=== PATIENT | male | born 1975 | race Caucasian/White ===

== ENCOUNTER 2021-12-05 13:07 | Emergency (ER) | payer SELFPAY ==
--- NOTE | 2021-12-05 | ECG_ITS ---
Test Reason : chest pain Blood Pressure : / mmHG Vent. Rate : 101 BPM Atrial Rate : 101 BPM P-R Int : 136 ms QRS Dur : 088 ms QT Int : 340 ms P-R-T Axes : 042 043 -16 degrees QTc Int : 440 ms Sinus tachycardia Possible Left atrial enlargement T wave abnormality, consider inferior ischemia Abnormal ECG When compared with ECG of 05-MAY-2012 08:36, Vent. rate has increased BY 42 BPM QT has lengthened Referred By: Generic ED Physician Electronically Signed By:REBECCA ROLAND
--- NOTE | ~2021-12-05 | XR_ITS ---
EXAMINATION: XR CHEST CLINICAL INFORMATION: Chest pain COMPARISON: Chest radiograph 05/05/2012 TECHNIQUE: Frontal view of the chest was obtained. FINDINGS: Aside from mild hypoinflation, no significant abnormality is noted involving the heart, lungs, mediastinum, bony thorax or soft tissues. XR/XR chest 1V IMPRESSION: No acute intrathoracic disease.
--- NOTE | ~2021-12-05 | CT_ITS ---
EXAMINATION: CT ABDOMEN AND PELVIS WITHOUT CONTRAST CLINICAL INFORMATION: Abdominal pain COMPARISON: 12.29.2013 TECHNIQUE: Multidetector volumetric imaging was performed from the superior aspect of the liver through the pubic symphysis. Sagittal and coronal reformatted images were obtained on the technologist's workstation. This CT examination was performed using dose optimization techniques as appropriate, variously including the following: *Automated exposure control *Adjustment of mA and/or kV according to patient size (this includes techniques or standardized protocols for targeted exams where dose is matched to indication/reason for exam; i.e. extremities or head) *Use of iterative reconstruction technique DLP: 913 mGy-cm FINDINGS: LUNG BASES: The visualized lung bases are unremarkable. LIVER, GALLBLADDER, AND BILIARY TREE: Liver normal in size, contour and morphology. Moderate diffuse hepatic steatosis. No intra or extrahepatic biliary dilatation. Gallbladder unremarkable. PANCREAS: Unremarkable. SPLEEN: Unremarkable. ADRENAL GLANDS: Unremarkable. KIDNEYS AND URETERS: The kidneys are normal in size, shape, and attenuation. No hydronephrosis, hydroureter, or calculi seen. No perinephric stranding. BLADDER: Unremarkable. GASTROINTESTINAL TRACT: There are multiple mildly dilated loops of small bowel, without point of transition. Ascending colon is fluid-filled. Transverse and left colon are relatively collapsed. Normal appendix. Moderate distention of the stomach. ABDOMINAL WALL: No significant hernia is appreciated. LYMPH NODES: Normal. VASCULAR: Unremarkable. PELVIC VISCERA: Unremarkable. OSSEOUS STRUCTURES: No acute or suspicious osseous abnormalities. Quyc-je-czatpfyh bilateral hip arthrosis with marginal osteophytes and degenerative subchondral cysts within the superior acetabula bilaterally. There is a fluid density structure within the right gluteus minimus superior to the right hip joint measuring approximately 5.0 x 2.8 x 3.0 cm. There is irregularity of the cortex of the iliac bone underlying this lesion, which is nonspecific. See morales images. CT/CT abdomen pelvis wo con IMPRESSION: * Moderate hepatic steatosis. * Findings compatible with generalized ileus. No evidence of obstruction. * Nonspecific 5.0 cm heterogeneous, possibly fluid containing structure within the gluteus minimus with underlying cortical irregularity of the right iliac bone. Recommend MRI of the pelvis, without and with contrast for further evaluation.
[2021-12-05 13:21] VITALS: BP 143/103; PULSE 102; RESP 24; TEMP 35.9; O2SAT 99; BMI 36.9
[2021-12-05 13:47] LABS: MANUAL DIFF FLAG NO
[2021-12-05 13:53] LABS: Basophils Absolute Auto 0.1 X10*3/uL (0.0-0.2); Basophils Percent Auto 0.5 % (0-2); Eosinophils Absolute Auto 0.1 X10*3/uL (0.0-0.4); Eosinophils Percent Auto 0.3 % (0-4); Hemoglobin 18.3 g/dl (14.0-18.0); Imm Gran Abs Auto 0.07 X10*3/uL (0.00-0.03); Imm Gran Pct Auto 0.4 % (0.0-0.4); Lymphocytes Absolute Auto 2.3 X10*3/uL (1.2-4.9); Lymphocytes Percent Auto 14.4 % (20-40); Mean Corpuscular Hemoglobin 28.2 pg (27.0-33.0); Mean Corpuscular Volume 85.5 fL (80.0-98.0); Mean Platelet Volume 9.5 fL (9.4-12.4); Monocytes Absolute Auto 0.7 X10*3/uL (0.1-1.2); Monocytes Percent Auto 4.7 % (2-11); Neutrophils Absolute Auto 12.5 x10*3/uL (2.0-8.3); Neutrophils Percent Auto 79.7 % (45-73); Platelet Count 386 X10*3/uL (160-400); Red Blood Count 6.49 X10*6/uL (4.60-5.80); Red Cell Distribution Width 13.2 % (11.0-16.0); White Blood Count 15.7 X10*3/uL (4.8-10.8)
[2021-12-05 13:58] LABS: Hematocrit 55.5 % (42.0-52.0)
[2021-12-05 14:13] LABS: Troponin-I High Sensitivity < 3.5 ng/L (<3.5-35.0)
[2021-12-05 14:14] LABS: Anion Gap 15 (12-20); Blood Urea Nitrogen 14 mg/dL (9-16); Calcium 10.9 mg/dL (8.4-10.2); Carbon Dioxide 26 mmol/L (22-29); Chloride 103 mmol/L (96-108); Creatinine Clr Calc Pharmacy 59.6; Estimated Glomerular Filt Rate 38; Glucose Random 156 mg/dL (60-115); Potassium 4.8 mmol/L (3.3-5.1); Sodium 139 mmol/L (135-145)
[2021-12-05 14:45] VITALS: BP 119/85; PULSE 99; RESP 17; TEMP 36.6; O2SAT 95
--- NOTE | 2021-12-05 14:53 | ED.CHESTPAIN ---
HPI - Chest Pain General Chief Complaint: Chest Pain Stated Complaint: chest pain abd pain Time Seen by Provider: 12/05/21 14:50 Mode of arrival: ambulatory History of Present Illness HPI narrative: this is a 46 years old male presented to the ED complaining of abdominal pain since 02:00 with nausea vomiting complaint: other (abdominal pain) Onset (ago): hour(s) (12 h) Timing of current episode: constant Onset: during rest Pain radiation: none Severity: moderate Quality: dull Relieving factors: nothing Exacerbating factors: nothing Risk Factors Coronary artery disease risk factors: none Related Data Allergies Allergy/AdvReac Type Severity Reaction Status Date / Time No Known Allergies Allergy Unverified 04/07/20 14:54 Review of Systems Constitutional: Constitutional: Reports no additional constitutional complaints Eyes: Eyes: Reports no additional eye complaints Cardiovascular: Cardiovascular: Reports no additional cardiovascular complaints Gastrointestinal: Gastrointestinal: Reports abdominal pain Integumentary/Breasts: Skin/Breast: Reports system reviewed and no additional complaints, except as docu Neurologic: Reports system reviewed and no additional complaints, except as documented FORMERLY [facility], [facility]1983 Social History Social History Advance Directives: No Advance Directives Information Provided: No Physical Exam Vital Signs: Vital Signs: Last Vital Signs Temp 98 F 12/05/21 14:45 Pulse 99 12/05/21 14:45 Resp 18 12/05/21 15:22 BP 119/85 12/05/21 14:45 Pulse Ox 95 12/05/21 14:45 BMI result Body Mass Index 36.9 Const: General: cooperative and comfortable Nutritional Appearance: average body habitus HEENT: Head: Yes normal to inspection and Yes No palpable skull fracture present General nose exam: Normal external nose present Face and sinus: Yes normal facial exam Mouth: Normal oral and palatal mucosa present Throat: Yes posterior oropharynx normal Neck: Neck: Yes normal visual inspection and Yes full ROM Lymphatic: no lymphadenopathy noted Chest: Chest palpation & inspection: normal inspection of the chest Resp: Effort & Inspection: normal respiratory effort Auscultation: clear to auscultation bilaterally Cardio: Jugular venous distension: no JVD Rate: regular rate Rhythm: regular rhythm GI: Inspection: Yes normal to inspection Palpation (GI): Tenderness to palpation present (GI) Auscultation: normal bowel sounds Skin: General skin exam: no rashes or lesions noted, elasticity normal and turgor normal Course Reevaluation(s) Reevaluation #1: ct pending signed off to Dr Berna MARTINO - Chest Pain Lab Data Result diagrams: 12/05/21 13:43 12/05/21 13:43 Labs: Lab Results 12/05/21 12/05/21 12/05/21 Range/Units 13:43 13:43 13:43 WBC 15.7 H (4.8-10.8) X10*3/uL RBC 6.49 H (4.60-5.80) X10*6/uL Hgb 18.3 H (14.0-18.0) g/dl Hct 55.5 H (42.0-52.0) % MCV 85.5 (80.0-98.0) fL MCH 28.2 (27.0-33.0) pg MCHC 33.0 (31.0-36.0) g/dl RDW 13.2 (11.0-16.0) % Plt Count 386 (160-400) X10*3/uL MPV 9.5 (9.4-12.4) fL Immature Gran % (Auto) 0.4 (0.0-0.4) % Neut % (Auto) 79.7 H (45-73) % Lymph % (Auto) 14.4 L (20-40) % [place] % (Auto) 4.7 (2-11) % Eos % (Auto) 0.3 (0-4) % Baso % (Auto) 0.5 (0-2) % Lymph # (Auto) 2.3 (1.2-4.9) X10*3/uL [place] # (Auto) 0.7 (0.1-1.2) X10*3/uL Eos # (Auto) 0.1 (0.0-0.4) X10*3/uL Baso # (Auto) 0.1 (0.0-0.2) X10*3/uL Abs Immat Gran (auto) 0.07 H (0.00-0.03) X10*3/uL Absolute Neuts (auto) 12.5 H (2.0-8.3) x10*3/uL Absolute Nucleated RBC 0.000 (0.0-0.012) X10*3/uL Nucleated RBC % (auto) 0.0 (0.0-0.2) /100WBC Sodium 139 (135-145) mmol/L Potassium 4.8 (3.3-5.1) mmol/L Chloride 103 (96-108) mmol/L Carbon Dioxide 26 (22-29) mmol/L Anion Gap 15 (12-20) BUN 14 (9-16) mg/dL Creatinine 1.92 H (0.5-1.4) mg/dL Estim Creat Clear Calc 59.6 Estimated GFR 38 Random Glucose 156 H (60-115) mg/dL Calcium 10.9 H (8.4-10.2) mg/dL Troponin I High Sens < 3.5 (<3.5-35.0) ng/L ECG Data ECG #1: Pacemaker model: Normal sinus [address]-Tchanges intraventricular conduction delay Discharge Plan Discharge Clinical Impression: Abdominal pain Patient Disposition: Still a Patient
[2021-12-05 15:11] VITALS: PULSE 89
[2021-12-05] MEDS: 0.9 % Sodium Chloride 1,000 ML 999 ML IVCONT ×2 (15:14→15:23)
[2021-12-05] MEDS: ondansetron HCL 4 MG/2 ML VIAL IVPUSH (15:21)
[2021-12-05 15:22] VITALS: RESP 18
[2021-12-05] MEDS: Morphine Sulfate 4 MG/ML CARTRIDGE IVPUSH (15:22)
--- NOTE | 2021-12-05 15:25 | PC.NURSE ---
pt a&ox3, vss, chest pain resolved per pt, 03/31 LLQ abd pain. medicated per provider order. 2L IVF running.
[2021-12-05 17:29] VITALS: BP 147/101; PULSE 81; RESP 17; TEMP 37.1; O2SAT 96
[2021-12-05 17:58] LABS: Anion Gap 13 (12-20); Blood Urea Nitrogen 13 mg/dL (9-16); Calcium 9.3 mg/dL (8.4-10.2); Carbon Dioxide 25 mmol/L (22-29); Chloride 106 mmol/L (96-108); Creatinine Clr Calc Pharmacy 73.4; Estimated Glomerular Filt Rate 48; Glucose Random 157 mg/dL (60-115); Potassium 4.8 mmol/L (3.3-5.1); Sodium 139 mmol/L (135-145)
[2021-12-05] MEDS: 0.9 % Sodium Chloride 1,000 ML 999 ML IV (19:04)
== END 2021-12-05 19:23 | disposition home or self-care (01) ==
PROVIDERS: Emergency Medicine; Emergency Provider Emergency Medicine; PCP Internal Medicine
DX: R07.89 Other chest pain (principal); R10.9 Unspecified abdominal pain; Z79.899 Other long term (current) drug therapy
CPT/HCPCS: 36415; 71045; 74176; 80048; 84484; 85025; 93005; 96361; 96374; 96375; 99284; J2270; J2405

== ENCOUNTER 2022-09-14 15:37 | Emergency (ER) | payer OTHER, SELFPAY ==
--- NOTE | 2022-09-14 16:17 | ED_ITS ---
HPI - General Adult General Chief complaint: Upper Respiratory Symptoms <MARBELLA Nair - Last Filed: 09/14/22 16:18> Stated complaint: diarrhea, vomiting, pain in L ear/ throat, dehydr <MARBELLA Nair - Last Filed: 09/14/22 16:18> Time Seen by Provider: 09/14/22 21:01 <MARBELLA Nair - Last Filed: 09/14/22 16:18> Source: patient <Felictia Coronel MD - Last Filed: 09/14/22 21:47> Mode of arrival: ambulatory <Felicita Coronel MD - Last Filed: 09/14/22 21:47> Limitations: no limitations <Felicita Coronel MD - Last Filed: 09/14/22 21:47> History of Present Illness HPI narrative: Patient comes to the emergency room complaining of a couple of days of nausea, vomiting, diarrhea and left-sided ear pain. Patient denies fever chills. Patient states that he does not have any abdominal pain, no URI or UTI symptoms. <Felicita Coronel MD - Last Filed: 09/14/22 21:47> Related Data Home medications: Previous Rx's Medication Instructions Recorded ondansetron 4 mg disintegrating 4 mg PO Q6H PRN nausea and 12/05/21 tablet vomiting #14 tabs amoxicillin 500 mg-potassium 1 tab PO BID #19 tabs 09/14/22 clavulanate 125 mg tablet (Augmentin) loperamide 2 mg capsule 2 mg PO Q4H PRN loose stool #14 09/14/22 caps ondansetron 4 mg disintegrating 4 mg PO Q6H PRN nausea and 09/14/22 tablet vomiting #14 tabs <MARBELLA Nair - Last Filed: 09/14/22 16:18> Allergies/adverse reactions: Allergies Allergy/AdvReac Type Severity Reaction Status Date / Time No Known Allergies Allergy Verified 09/14/22 16:18 <MARBELLA Nair - Last Filed: 09/14/22 16:18> Review of Systems Review of Systems: Constitutional : No Weight loss, No Fever, No Chills, No Night Sweats, No Fatigue, No Malaise ENT/Mouth : No Hearing loss, complaining of left-sided ear pain,, No Nasal Congestion, No Sinus Pain, No Hoarseness, No sore throat, No Rhinorrhea, No Swallowing Difficulty Eyes: No Eye Pain, No Swelling, No Redness, No Foreign Body, No Discharge, No Vision Changes Cardiovascular : No Chest Pain, No SOB, No Dyspnea on Exertion, No Orthopnea, No Edema, No Palpitations Respiratory : No Cough, No Sputum, No Wheezing, No Smoke Exposure, No Dyspnea Gastrointestinal : Complaining of nausea vomiting and diarrhea, No Constipation, No abdominal Pain, No Hematochezia, No Melena Genitourinary : no irregular bleeding, No Dysuria, No Urinary Frequency, No Hematuria, No Urinary Incontinence, No Urgency, No Flank Pain, No Urinary Flow Changes, No Hesitancy Musculoskeletal : No joint pain, No Myalgias, No Joint Swelling Skin : No Skin Lesions, No rash Neuro : No Weakness, No Numbness, No Paresthesias, No Loss of Consciousness, No Dizziness, No Headache Psych : No Anxiety/Panic, No Depression, No SI/HI/AH/VH, No Social Issues, Heme/Lymph: No Bruising, No Bleeding,No Lymphadenopathy Endocrine : No Polyuria, No Polydipsia, No Temperature Intolerance <Felicita Coronel MD - Last Filed: 09/14/22 21:47> [facility] Social History Social History: Social History Alcohol intake: current Alcohol intake frequency: holidays/special occasions only Smoked in Last 30 Days: Yes Use of substances other than those prescribed or required for medical reasons: No Advance Directives: No Advance Directives Information Provided: No <MARBELLA Nair - Last Filed: 09/14/22 16:18> Physical Exam ED Vital Signs: Vital Signs - 24 hr 09/14/22 16:18 09/14/22 21:33 Temperature 100.1 F 98.8 F Pulse Rate 114 H 84 Respiratory Rate 16 16 Blood Pressure 117/74 128/73 Pulse Oximetry 93 96 Oxygen Delivery Method Room Air Room Air BMI result Body Mass Index 36.5 <MARBELLA Nair - Last Filed: 09/14/22 16:18> Vital Signs - 24 hr 09/14/22 16:18 09/14/22 21:33 Temperature 100.1 F 98.8 F Pulse Rate 114 H 84 Respiratory Rate 16 16 Blood Pressure 117/74 128/73 Pulse Oximetry 93 96 Oxygen Delivery Method Room Air Room Air BMI result Body Mass Index 36.5 <Felicita Coronel MD - Last Filed: 09/14/22 21:47> Const Other: Appearance: Alert. Oriented X3. No acute distress. Eyes: Pupils equal, round and reactive to light. ENT: Pharynx normal. Left ear positive for otitis media, tympanic membrane erythematous, mildly bulging, no ruptured. Right ear within normal limits Neck: Normal inspection. Neck supple. No lymph nodes noted. No crepitus CVS: Normal heart rate and rhythm. Pulses normal. Normal S1 and S2 Respiratory: No respiratory distress. Breath sounds normal. No Wheezing. No rales Abdomen: Soft and nontender. No rigidity. No distention. Skin: Skin warm and dry. Normal skin color. Normal skin turgor. Extremities: No lower extremity edema. No Lacerations. No Rash Neuro: Oriented X 3. No motor deficit. No sensory deficit. Moving all extremities. No slurred speech. CN 2 through 12 grossly intact Psych: calm, cooperative, normal affect <Felicita Coronel MD - Last Filed: 09/14/22 21:47> Course Course Course Narrative: RME performed by Kalani Cortes PA-C. Patient is a 47 year old male presenting to the emergency department with nausea, vomiting, and feeling generally unwell. Patient is concerned that he is dehydrated. Labs ordered. Patient placed back in the waiting room pending room availability and results. <MARBELLA Nair - Last Filed: 09/14/22 16:18> Medical Decision Making Medical Decision Making MDM Narrative: -I discussed the labs with the patient. Imaging at this time is not indicated. -I recommended IV fluids, IV Zofran, loperamide and Augmentin. However, patient requested to have this medication being given p.o. and also states that he will take plenty of fluids at home. Patient states that he has a situation at home and needs to be discharged as soon as possible -patient given p.o. medications as above. <Felicita Coronel MD - Last Filed: 09/14/22 21:47> Differential Diagnosis Differential Diagnoses: The differential diagnosis associated with the presentation includes (Melina l syndrome, gastritis, COVID) <Felicita Coronel MD - Last Filed: 09/14/22 21:47> Lab Data [facility] Lab Attestation statement: I reviewed the patient's lab results. <Felicita Coronel MD - Last Filed: 21:47> Result Diagrams: 09/14/22 17:02 09/14/22 17:02 <MARBELLA Nair - Last Filed: 09/14/22 16:18> Labs: Lab Results 09/14/22 09/14/22 09/14/22 Range/Units 17:02 17:02 17:02 WBC 8.8 (4.8-10.8) X10*3/uL RBC 5.54 (4.60-5.80) X10*6/uL Hgb 15.9 (14.0-18.0) g/dl Hct 48.1 (42.0-52.0) % MCV 86.8 (80.0-98.0) fL MCH 28.7 (27.0-33.0) pg MCHC 33.1 (31.0-36.0) g/dl RDW 12.9 (11.0-16.0) % Plt Count 257 D (160-400) X10*3/uL MPV 9.9 (9.4-12.4) fL Immature Gran % (Auto) 0.3 (0.0-0.4) % Neut % (Auto) 82.3 H (45-73) % Lymph % (Auto) 10.8 L (20-40) % [place] % (Auto) 6.2 (2-11) % Eos % (Auto) 0.1 (0-4) % Baso % (Auto) 0.3 (0-2) % Lymph # (Auto) 1.0 L (1.2-4.9) X10*3/uL [place] # (Auto) 0.5 (0.1-1.2) X10*3/uL Eos # (Auto) 0.0 (0.0-0.4) X10*3/uL Baso # (Auto) 0.0 (0.0-0.2) X10*3/uL Abs Immat Gran (auto) 0.03 (0.00-0.03) X10*3/uL Absolute Neuts (auto) 7.2 (2.0-8.3) x10*3/uL Absolute Nucleated RBC 0.000 (0.0-0.012) X10*3/uL Nucleated RBC % (auto) 0.0 (0.0-0.2) /100WBC Sodium 136 (135-145) mmol/L Potassium 4.0 (3.3-5.1) mmol/L Chloride 107 (96-108) mmol/L Carbon Dioxide 20 L (22-29) mmol/L Anion Gap 13 (12-20) BUN 15 (9-16) mg/dL Creatinine 1.25 (0.5-1.4) mg/dL Estim Creat Clear Calc 87.4 Estimated GFR > 60 Random Glucose 125 H (60-115) mg/dL Calcium 8.6 D (8.4-10.2) mg/dL Magnesium 1.6 (1.6-2.6) mg/dL Total Bilirubin 0.8 (0.0-1.0) mg/dL AST 19 (5-37) U/L ALT 39 (0-40) U/L Alkaline Phosphatase 84 (39-117) U/L Troponin I High Sens (<3.5-35.0) ng/L B-Natriuretic Peptide (<100) pg/mL Total Protein 6.9 (6.5-8.0) g/dL Albumin 4.1 (3.5-5.0) g/dL Lipase 10 (8-78) U/L COVID-19 ([facility]) Negative (Negative) COVID-19 Clin Com See Note 09/14/22 09/14/22 Range/Units 17:02 17:02 WBC (4.8-10.8) X10*3/uL RBC (4.60-5.80) X10*6/uL Hgb (14.0-18.0) g/dl Hct (42.0-52.0) % MCV (80.0-98.0) fL MCH (27.0-33.0) pg MCHC (31.0-36.0) g/dl RDW (11.0-16.0) % Plt Count (160-400) X10*3/uL MPV (9.4-12.4) fL Immature Gran % (Auto) (0.0-0.4) % Neut % (Auto) (45-73) % Lymph % (Auto) (20-40) % [place] % (Auto) (2-11) % Eos % (Auto) (0-4) % Baso % (Auto) (0-2) % Lymph # (Auto) (1.2-4.9) X10*3/uL [place] # (Auto) (0.1-1.2) X10*3/uL Eos # (Auto) (0.0-0.4) X10*3/uL Baso # (Auto) (0.0-0.2) X10*3/uL Abs Immat Gran (auto) (0.00-0.03) X10*3/uL Absolute Neuts (auto) (2.0-8.3) x10*3/uL Absolute Nucleated RBC (0.0-0.012) X10*3/uL Nucleated RBC % (auto) (0.0-0.2) /100WBC Sodium (135-145) mmol/L Potassium (3.3-5.1) mmol/L Chloride (96-108) mmol/L Carbon Dioxide (22-29) mmol/L Anion Gap (12-20) BUN (9-16) mg/dL Creatinine (0.5-1.4) mg/dL Estim Creat Clear Calc Estimated GFR Random Glucose (60-115) mg/dL Calcium (8.4-10.2) mg/dL Magnesium (1.6-2.6) mg/dL Total Bilirubin (0.0-1.0) mg/dL AST (5-37) U/L ALT (0-40) U/L Alkaline Phosphatase (39-117) U/L Troponin I High Sens 4.3 (<3.5-35.0) ng/L B-Natriuretic Peptide 38 (<100) pg/mL Total Protein (6.5-8.0) g/dL Albumin (3.5-5.0) g/dL Lipase (8-78) U/L COVID-19 ([facility]) (Negative) COVID-19 Clin Com <MARBELLA Nair - Last Filed: 09/14/22 16:18> Lab Results 09/14/22 09/14/22 09/14/22 Range/Units 17:02 17:02 17:02 WBC 8.8 (4.8-10.8) X10*3/uL RBC 5.54 (4.60-5.80) X10*6/uL Hgb 15.9 (14.0-18.0) g/dl Hct 48.1 (42.0-52.0) % MCV 86.8 (80.0-98.0) fL MCH 28.7 (27.0-33.0) pg MCHC 33.1 (31.0-36.0) g/dl RDW 12.9 (11.0-16.0) % Plt Count 257 D (160-400) X10*3/uL MPV 9.9 (9.4-12.4) fL Immature Gran % (Auto) 0.3 (0.0-0.4) % Neut % (Auto) 82.3 H (45-73) % Lymph % (Auto) 10.8 L (20-40) % [place] % (Auto) 6.2 (2-11) % Eos % (Auto) 0.1 (0-4) % Baso % (Auto) 0.3 (0-2) % Lymph # (Auto) 1.0 L (1.2-4.9) X10*3/uL [place] # (Auto) 0.5 (0.1-1.2) X10*3/uL Eos # (Auto) 0.0 (0.0-0.4) X10*3/uL Baso # (Auto) 0.0 (0.0-0.2) X10*3/uL Abs Immat Gran (auto) 0.03 (0.00-0.03) X10*3/uL Absolute Neuts (auto) 7.2 (2.0-8.3) x10*3/uL Absolute Nucleated RBC 0.000 (0.0-0.012) X10*3/uL Nucleated RBC % (auto) 0.0 (0.0-0.2) /100WBC Sodium 136 (135-145) mmol/L Potassium 4.0 (3.3-5.1) mmol/L Chloride 107 (96-108) mmol/L Carbon Dioxide 20 L (22-29) mmol/L Anion Gap 13 (12-20) BUN 15 (9-16) mg/dL Creatinine 1.25 (0.5-1.4) mg/dL Estim Creat Clear Calc 87.4 Estimated GFR > 60 Random Glucose 125 H (60-115) mg/dL Calcium 8.6 D (8.4-10.2) mg/dL Magnesium 1.6 (1.6-2.6) mg/dL Total Bilirubin 0.8 (0.0-1.0) mg/dL AST 19 (5-37) U/L ALT 39 (0-40) U/L Alkaline Phosphatase 84 (39-117) U/L Troponin I High Sens (<3.5-35.0) ng/L B-Natriuretic Peptide (<100) pg/mL Total Protein 6.9 (6.5-8.0) g/dL Albumin 4.1 (3.5-5.0) g/dL Lipase 10 (8-78) U/L COVID-19 ([facility]) Negative (Negative) COVID-19 Clin Com See Note 09/14/22 09/14/22 Range/Units 17:02 17:02 WBC (4.8-10.8) X10*3/uL RBC (4.60-5.80) X10*6/uL Hgb (14.0-18.0) g/dl Hct (42.0-52.0) % MCV (80.0-98.0) fL MCH (27.0-33.0) pg MCHC (31.0-36.0) g/dl RDW (11.0-16.0) % Plt Count (160-400) X10*3/uL MPV (9.4-12.4) fL Immature Gran % (Auto) (0.0-0.4) % Neut % (Auto) (45-73) % Lymph % (Auto) (20-40) % [place] % (Auto) (2-11) % Eos % (Auto) (0-4) % Baso % (Auto) (0-2) % Lymph # (Auto) (1.2-4.9) X10*3/uL [place] # (Auto) (0.1-1.2) X10*3/uL Eos # (Auto) (0.0-0.4) X10*3/uL Baso # (Auto) (0.0-0.2) X10*3/uL Abs Immat Gran (auto) (0.00-0.03) X10*3/uL Absolute Neuts (auto) (2.0-8.3) x10*3/uL Absolute Nucleated RBC (0.0-0.012) X10*3/uL Nucleated RBC % (auto) (0.0-0.2) /100WBC Sodium (135-145) mmol/L Potassium (3.3-5.1) mmol/L Chloride (96-108) mmol/L Carbon Dioxide (22-29) mmol/L Anion Gap (12-20) BUN (9-16) mg/dL Creatinine (0.5-1.4) mg/dL Estim Creat Clear Calc Estimated GFR Random Glucose (60-115) mg/dL Calcium (8.4-10.2) mg/dL Magnesium (1.6-2.6) mg/dL Total Bilirubin (0.0-1.0) mg/dL AST (5-37) U/L ALT (0-40) U/L Alkaline Phosphatase (39-117) U/L Troponin I High Sens 4.3 (<3.5-35.0) ng/L B-Natriuretic Peptide 38 (<100) pg/mL Total Protein (6.5-8.0) g/dL Albumin (3.5-5.0) g/dL Lipase (8-78) U/L COVID-19 ([facility]) (Negative) COVID-19 Clin Com <Felicita Coronel MD - Last Filed: 09/14/22 21:47> Discharge Plan Discharge Clinical Impression: Acute viral syndrome, Otitis media, Nausea vomiting and diarrhea <MARBELLA Nair - Last Filed: 09/14/22 16:18> Patient Disposition: Home, Self-Care <MARBELLA Nair - Last Filed: 09/14/22 16:18> Instructions: Ear Infection (ED), Acute Nausea and Vomiting (ED) <MARBELLA Nair - Last Filed: 09/14/22 16:18> Additional Instructions: Please follow-up with your primary care physician tomorrow. If you have any worsening or new symptoms, please return to the emergency room or call 911 <AMRBELLA Nair - Last Filed: 09/14/22 16:18> Prescriptions: New ondansetron 4 mg tablet,disintegrating 4 mg PO Q6H PRN (Reason: nausea and vomiting) Qty: 14 0RF amoxicillin-pot clavulanate [Augmentin] 500-125 mg tablet 1 tab PO BID Qty: 19 0RF loperamide 2 mg capsule 2 mg PO Q4H PRN (Reason: loose stool) Qty: 14 0RF Rx Instructions: administer after each loose stool until symptoms controlled; do not exceed 8 mg per 24 hrs No Action ondansetron 4 mg tablet,disintegrating 4 mg PO Q6H PRN (Reason: nausea and vomiting) Qty: 14 0RF <MARBELLA Nair - Last Filed: 09/14/22 16:18>
[2022-09-14 16:18] VITALS: BP 117/74; PULSE 114; RESP 16; TEMP 37.8; O2SAT 93; BMI 36.5
--- NOTE | 2022-09-14 16:18 | ECG_ITS ---
Test Reason : SOB Blood Pressure : / mmHG Vent. Rate : 086 BPM Atrial Rate : 086 BPM P-R Int : 128 ms QRS Dur : 090 ms QT Int : 344 ms P-R-T Axes : 011 030 -05 degrees QTc Int : 411 ms Normal sinus rhythm Nonspecific T wave abnormality Borderline ECG When compared with ECG of 05-DEC-2021 13:17, Nonspecific ST and T wave abnormality less prominent Referred By: Kalani Cortes Electronically Signed By:REBECCA ROLAND
[2022-09-14 17:10] LABS: MANUAL DIFF FLAG NO
[2022-09-14 17:18] LABS: Basophils Percent Auto 0.3 % (0-2); Eosinophils Percent Auto 0.1 % (0-4); Hematocrit 48.1 % (42.0-52.0); Hemoglobin 15.9 g/dl (14.0-18.0); Imm Gran Abs Auto 0.03 X10*3/uL (0.00-0.03); Imm Gran Pct Auto 0.3 % (0.0-0.4); Lymphocytes Percent Auto 10.8 % (20-40); Mean Corpuscular HGB Conc 33.1 g/dl (31.0-36.0); Mean Corpuscular Hemoglobin 28.7 pg (27.0-33.0); Mean Corpuscular Volume 86.8 fL (80.0-98.0); Mean Platelet Volume 9.9 fL (9.4-12.4); Monocytes Absolute Auto 0.5 X10*3/uL (0.1-1.2); Monocytes Percent Auto 6.2 % (2-11); Neutrophils Absolute Auto 7.2 x10*3/uL (2.0-8.3); Neutrophils Percent Auto 82.3 % (45-73); Platelet Count 257 X10*3/uL (160-400); Red Blood Count 5.54 X10*6/uL (4.60-5.80); Red Cell Distribution Width 12.9 % (11.0-16.0); White Blood Count 8.8 X10*3/uL (4.8-10.8)
[2022-09-14 17:27] LABS: COVID-19 Test Negative (Negative); IDNOW Serial# 55D5AD1C
[2022-09-14 17:30] LABS: Alanine Aminotransferase 39 U/L (0-40); Albumin Level 4.1 g/dL (3.5-5.0); Alkaline Phosphatase 84 U/L (39-117); Anion Gap 13 (12-20); Aspartate Amino Transferase 19 U/L (5-37); Bilirubin Total 0.8 mg/dL (0.0-1.0); Blood Urea Nitrogen 15 mg/dL (9-16); Calcium 8.6 mg/dL (8.4-10.2); Carbon Dioxide 20 mmol/L (22-29); Chloride 107 mmol/L (96-108); Creatinine Clr Calc Pharmacy 87.4; Estimated Glomerular Filt Rate > 60; Glucose Random 125 mg/dL (60-115); Lipase 10 U/L (8-78); Magnesium 1.6 mg/dL (1.6-2.6); Sodium 136 mmol/L (135-145); Total Protein 6.9 g/dL (6.5-8.0)
[2022-09-14 17:35] LABS: B Type Natriuretic Peptide 38 pg/mL (<100)
[2022-09-14 17:37] LABS: Troponin-I High Sensitivity 4.3 ng/L (<3.5-35.0)
[2022-09-14 21:33] VITALS: BP 128/73; PULSE 84; RESP 16; TEMP 37.1; O2SAT 96
[2022-09-14] MEDS: Loperamide HCl 2 MG CAPSULE 4 MG PO (21:52)
[2022-09-14] MEDS: Ondansetron ODT 4 MG TAB.RAPDIS TRANSLINGU (21:52)
[2022-09-14] MEDS: Amoxicillin/Potassium Clav 875 MG TABLET PO (21:52)
== END 2022-09-14 21:56 | disposition home or self-care (01) ==
PROVIDERS: Physician Assistant Medical; Emergency Provider Emergency Medicine; PCP Internal Medicine
DX: B34.9 Viral infection, unspecified (principal); H66.93 Otitis media, unspecified, bilateral; R11.2 Nausea with vomiting, unspecified; R06.02 Shortness of breath; Z79.899 Other long term (current) drug therapy
CPT/HCPCS: 36415; 80053; 83690; 83735; 83880; 84484; 85025; 87635; 93005; 99283; 99284

== ENCOUNTER 2023-03-03 20:46 | Emergency (ER) | payer MEDICAID, SELFPAY ==
[2023-03-03 21:17] VITALS: BP 126/87; PULSE 87; RESP 18; TEMP 36.4; O2SAT 98; BMI 34.8
[2023-03-03 22:04] LABS: MANUAL DIFF FLAG NO
[2023-03-03 22:13] LABS: Basophils Absolute Auto 0.1 X10*3/uL (0.0-0.2); Basophils Percent Auto 0.6 % (0-2); Eosinophils Absolute Auto 0.2 X10*3/uL (0.0-0.4); Eosinophils Percent Auto 1.5 % (0-4); Hematocrit 48.1 % (42.0-52.0); Hemoglobin 16.4 g/dl (14.0-18.0); Imm Gran Abs Auto 0.06 X10*3/uL (0.00-0.03); Imm Gran Pct Auto 0.4 % (0.0-0.4); Lymphocytes Absolute Auto 3.7 X10*3/uL (1.2-4.9); Lymphocytes Percent Auto 24.5 % (20-40); Mean Corpuscular HGB Conc 34.1 g/dl (31.0-36.0); Mean Corpuscular Hemoglobin 29.5 pg (27.0-33.0); Mean Corpuscular Volume 86.5 fL (80.0-98.0); Monocytes Absolute Auto 1.1 X10*3/uL (0.1-1.2); Monocytes Percent Auto 7.6 % (2-11); Neutrophils Absolute Auto 9.7 x10*3/uL (2.0-8.3); Neutrophils Percent Auto 65.4 % (45-73); Platelet Count 325 X10*3/uL (160-400); Red Blood Count 5.56 X10*6/uL (4.60-5.80); Red Cell Distribution Width 12.6 % (11.0-16.0); White Blood Count 14.9 X10*3/uL (4.8-10.8)
[2023-03-03 22:24] LABS: Alanine Aminotransferase 25 U/L (0-40); Albumin Level 4.5 g/dL (3.5-5.0); Alkaline Phosphatase 97 U/L (39-117); Anion Gap 12 (12-20); Aspartate Amino Transferase 19 U/L (5-37); Bilirubin Total 0.6 mg/dL (0.0-1.0); Blood Urea Nitrogen 15 mg/dL (9-16); Calcium 9.7 mg/dL (8.4-10.2); Carbon Dioxide 23 mmol/L (22-29); Chloride 107 mmol/L (96-108); Creatinine Clr Calc Pharmacy 102.8; Estimated Glomerular Filt Rate > 60; Glucose Random 107 mg/dL (60-115); Lipase 38 U/L (8-78); Potassium 3.7 mmol/L (3.3-5.1); Sodium 138 mmol/L (135-145); Total Protein 7.9 g/dL (6.5-8.0)
[2023-03-03 22:28] LABS: COVID-19 Test Negative (Negative); IDNOW Serial# 55D5AD1C
--- NOTE | 2023-03-03 22:33 | ED.ABDPAIN ---
HPI - Abdominal Pain General Chief Complaint: Abdominal Pain Stated Complaint: v/n/d abd pain Time Seen by Provider: 03/03/23 22:28 Source: patient Mode of arrival: ambulatory Limitations: no limitations History of Present Illness HPI narrative: Patient comes to the emergency room complaining of nausea vomiting and diarrhea for approximately 17 hours. Patient denies fever chills, complaining of diffuse abdominal cramping Related Data Previous Rx's Medication Instructions Recorded ondansetron 4 mg disintegrating 4 mg PO Q6H PRN nausea and 12/05/21 tablet vomiting #14 tabs amoxicillin 500 mg-potassium 1 tab PO BID #19 tabs 09/14/22 clavulanate 125 mg tablet (Augmentin) loperamide 2 mg capsule 2 mg PO Q4H PRN loose stool #14 09/14/22 caps ondansetron 4 mg disintegrating 4 mg PO Q6H PRN nausea and 09/14/22 tablet vomiting #14 tabs hyoscyamine sulfate 0.125 mg tablet 0.125 mg PO QID PRN dyspepsia #7 03/04/23 tabs loperamide 2 mg tablet 2 mg PO Q4H PRN loose stool #14 03/04/23 tabs ondansetron HCl 4 mg tablet 4 mg PO Q6H PRN nausea and 03/04/23 vomiting #10 tabs Allergies Allergy/AdvReac Type Severity Reaction Status Date / Time No Known Allergies Allergy Verified 03/03/23 21:17 Review of Systems Review of Systems Constitutional : No Weight loss, No Fever, No Chills, No Night Sweats, No Fatigue, No Malaise ENT/Mouth : No Hearing loss, No Ear Pain, No Nasal Congestion, No Sinus Pain, No Hoarseness, No sore throat, No Rhinorrhea, No Swallowing Difficulty Eyes: No Eye Pain, No Swelling, No Redness, No Foreign Body, No Discharge, No Vision Changes Cardiovascular : No Chest Pain, No SOB, No Dyspnea on Exertion, No Orthopnea, No Edema, No Palpitations Respiratory : No Cough, No Sputum, No Wheezing, No Smoke Exposure, No Dyspnea Gastrointestinal : May of nausea vomiting and diarrhea and abdominal cramping Genitourinary : no irregular bleeding, No Dysuria, No Urinary Frequency, No Hematuria, No Urinary Incontinence, No Urgency, No Flank Pain, No Urinary Flow Changes, No Hesitancy Musculoskeletal : No joint pain, No Myalgias, No Joint Swelling Skin : No Skin Lesions, No rash Neuro : No Weakness, No Numbness, No Paresthesias, No Loss of Consciousness, No Dizziness, No Headache Psych : No Anxiety/Panic, No Depression, No SI/HI/AH/VH, No Social Issues, Heme/Lymph: No Bruising, No Bleeding,No Lymphadenopathy Endocrine : No Polyuria, No Polydipsia, No Temperature Intolerance [facility] Social History Social History Alcohol intake: current Alcohol intake frequency: a few times a month Alcohol type: beer and hard liquor Smoked in Last 30 Days: Yes Use of substances other than those prescribed or required for medical reasons: Yes Substance Use Type: Marijuana Advance Directives: No Advance Directives Information Provided: Yes Physical Exam ED Vital Signs: Vital Signs - 24 hr 03/03/23 21:17 Temperature 97.5 F Pulse Rate 87 Respiratory Rate 18 Blood Pressure 126/87 Pulse Oximetry 98 Oxygen Delivery Method Room Air BMI result Body Mass Index 34.8 Const Other: Appearance: Alert. Oriented X3. No acute distress. Well-appearing Eyes: Pupils equal, round and reactive to light. ENT: Pharynx normal. Mildly dry mucous membranes Neck: Normal inspection. Neck supple. No lymph nodes noted. No crepitus CVS: Normal heart rate and rhythm. Pulses normal. Normal S1 and S2 Respiratory: No respiratory distress. Breath sounds normal. No Wheezing. No rales Abdomen: Soft and nontender. No rigidity. No distention. Skin: Skin warm and dry. Normal skin color. Normal skin turgor. Extremities: No lower extremity edema. No Lacerations. No Rash Neuro: Oriented X 3. No motor deficit. No sensory deficit. Moving all extremities. No slurred speech. CN 2 through 12 grossly intact Psych: calm, cooperative, normal affect Course Course Course Narrative: -on physical exam, patient did not have any abdominal pain, imaging not indicated at this time -patient receiving IV fluids, Zofran and p.o. loperamide Medical Decision Making Medical Decision Making [facility] Narrative: My interpretation of labs: White blood cell count 14.9 a bit elevated but nonspecific. Chemistry unremarkable, LFTs lipase behzad For repeat physical exam prior to discharge, patient has no abdominal pain, patient states that he feels much better. -patient likely having gastritis, the versus gastroenteritis versus viral syndrome Differential Diagnosis Differential Diagnoses: The differential diagnosis associated with the presentation includes (As above) Admission/Observation Consideration of admission/observation: Escalation of care including admission/observation considered (Patient came in with abdominal pain, elevated white blood cell count, patient was considered) Lab Data MDM Lab Attestation statement: I reviewed the patient's lab results. 03/03/23 21:59 03/03/23 21:59 Labs: Lab Results 03/03/23 03/03/23 03/03/23 Range/Units 21:59 21:59 21:59 WBC 14.9 H (4.8-10.8) X10*3/uL RBC 5.56 (4.60-5.80) X10*6/uL Hgb 16.4 (14.0-18.0) g/dl Hct 48.1 (42.0-52.0) % MCV 86.5 (80.0-98.0) fL MCH 29.5 (27.0-33.0) pg MCHC 34.1 (31.0-36.0) g/dl RDW 12.6 (11.0-16.0) % Plt Count 325 D (160-400) X10*3/uL MPV 10.0 (9.4-12.4) fL Immature Gran % (Auto) 0.4 (0.0-0.4) % Neut % (Auto) 65.4 (45-73) % Lymph % (Auto) 24.5 (20-40) % [place] % (Auto) 7.6 (2-11) % Eos % (Auto) 1.5 (0-4) % Baso % (Auto) 0.6 (0-2) % Lymph # (Auto) 3.7 (1.2-4.9) X10*3/uL [place] # (Auto) 1.1 (0.1-1.2) X10*3/uL Eos # (Auto) 0.2 (0.0-0.4) X10*3/uL Baso # (Auto) 0.1 (0.0-0.2) X10*3/uL Abs Immat Gran (auto) 0.06 H (0.00-0.03) X10*3/uL Absolute Neuts (auto) 9.7 H (2.0-8.3) x10*3/uL Absolute Nucleated RBC 0.000 (0.0-0.012) X10*3/uL Nucleated RBC % (auto) 0.0 (0.0-0.2) /100WBC Sodium 138 (135-145) mmol/L Potassium 3.7 (3.3-5.1) mmol/L Chloride 107 (96-108) mmol/L Carbon Dioxide 23 (22-29) mmol/L Anion Gap 12 (12-20) BUN 15 (9-16) mg/dL Creatinine 1.07 (0.5-1.4) mg/dL Estim Creat Clear Calc 102.8 Estimated GFR > 60 Random Glucose 107 (60-115) mg/dL Calcium 9.7 D (8.4-10.2) mg/dL Total Bilirubin 0.6 (0.0-1.0) mg/dL AST 19 (5-37) U/L ALT 25 (0-40) U/L Alkaline Phosphatase 97 (39-117) U/L Total Protein 7.9 (6.5-8.0) g/dL Albumin 4.5 (3.5-5.0) g/dL Lipase 38 (8-78) U/L Urine Color Urine Appearance Urine pH (5.0-9.0) Ur Specific [place] (1.005-1.025) Urine Protein (Neg-Trace) mg/dL Urine Glucose (UA) (Negative) mg/dL Urine Ketones (Negative) mg/dL Urine Blood (Negative) Urine Nitrite (Negative) Ur Leukocyte Esterase (Negative) Urine RBC (0-2) /HPF Urine WBC (0-5) /HPF Ur Squamous Epith Cells (0-2) /HPF Urine Bacteria (None Seen) Hyaline Casts (0-2) /LPF COVID-19 ([place]) Negative (Negative) COVID-19 Clin Com See Note 03/03/23 Range/Units 23:18 WBC (4.8-10.8) X10*3/uL RBC (4.60-5.80) X10*6/uL Hgb (14.0-18.0) g/dl Hct (42.0-52.0) % MCV (80.0-98.0) fL MCH (27.0-33.0) pg MCHC (31.0-36.0) g/dl RDW (11.0-16.0) % Plt Count (160-400) X10*3/uL MPV (9.4-12.4) fL Immature Gran % (Auto) (0.0-0.4) % Neut % (Auto) (45-73) % Lymph % (Auto) (20-40) % [place] % (Auto) (2-11) % Eos % (Auto) (0-4) % Baso % (Auto) (0-2) % Lymph # (Auto) (1.2-4.9) X10*3/uL [place] # (Auto) (0.1-1.2) X10*3/uL Eos # (Auto) (0.0-0.4) X10*3/uL Baso # (Auto) (0.0-0.2) X10*3/uL Abs Immat Gran (auto) (0.00-0.03) X10*3/uL Absolute Neuts (auto) (2.0-8.3) x10*3/uL Absolute Nucleated RBC (0.0-0.012) X10*3/uL Nucleated RBC % (auto) (0.0-0.2) /100WBC Sodium (135-145) mmol/L Potassium (3.3-5.1) mmol/L Chloride (96-108) mmol/L Carbon Dioxide (22-29) mmol/L Anion Gap (12-20) BUN (9-16) mg/dL Creatinine (0.5-1.4) mg/dL Estim Creat Clear Calc Estimated GFR Random Glucose (60-115) mg/dL Calcium (8.4-10.2) mg/dL Total Bilirubin (0.0-1.0) mg/dL AST (5-37) U/L ALT (0-40) U/L Alkaline Phosphatase (39-117) U/L Total Protein (6.5-8.0) g/dL Albumin (3.5-5.0) g/dL Lipase (8-78) U/L Urine Color Yellow Urine Appearance Clear Urine pH 6.0 (5.0-9.0) Ur Specific [place] 1.025 (1.005-1.025) Urine Protein 30 (1+) H (Neg-Trace) mg/dL Urine Glucose (UA) Negative (Negative) mg/dL Urine Ketones Trace (Negative) mg/dL Urine Blood Small (1+) H (Negative) Urine Nitrite Negative (Negative) Ur Leukocyte Esterase Negative (Negative) Urine RBC 6-10 H (0-2) /HPF Urine WBC 0-5 (0-5) /HPF Ur Squamous Epith Cells 0-2 (0-2) /HPF Urine Bacteria None Seen (None Seen) Hyaline Casts 0-2 (0-2) /LPF COVID-19 ([place]) (Negative) COVID-19 Clin Com Medications Administered Discontinued Medications Generic Name Dose Route Start Last Admin Trade Name Freq PRN Reason Stop Dose Admin Sodium Chloride 1,000 mls @ 999 mls/hr 03/03/23 22:32 03/03/23 23:50 Ns IVCONT 03/03/23 23:32 Infused .Q1H1M ONE Infusion Loperamide HCl 4 mg 03/03/23 22:32 03/03/23 23:12 Loperamide Hcl 2 Mg Capsule PO 03/03/23 22:33 4 mg ONCE ONE Administration Ondansetron HCl 4 mg 03/03/23 22:32 03/03/23 23:12 Ondansetron Hcl 4 Mg/2 Ml Vial IVPUSH 03/03/23 22:33 4 mg ONCE ONE Administration Critical Care Time Critical Care Time Critical Care Time: Yes Total Critical Care Time: 45 Attestation: I have personally provided critical care time. Time includes review of lab data, radiology results, discussion with consultants, and monitoring for potential decompensation. Intervention performed as documented. Discharge Plan Discharge Clinical Impression: Nausea vomiting and diarrhea Patient Disposition: Home, Self-Care Instructions: Acute Nausea and Vomiting (ED), Acute Diarrhea (ED) Additional Instructions: Please follow-up with your primary care physician tomorrow. If you have any worsening or new symptoms, please return to the emergency room or call 911 Prescriptions: New loperamide 2 mg tablet 2 mg PO Q4H PRN (Reason: loose stool) Qty: 14 0RF Rx Instructions: administer after each loose stool until symptoms controlled; do not exceed 8 mg per 24 hrs ondansetron HCl 4 mg tablet 4 mg PO Q6H PRN (Reason: nausea and vomiting) Qty: 10 0RF hyoscyamine sulfate 0.125 mg tablet 0.125 mg PO QID PRN (Reason: dyspepsia) Qty: 7 0RF No Action ondansetron 4 mg tablet,disintegrating 4 mg PO Q6H PRN (Reason: nausea and vomiting) Qty: 14 0RF amoxicillin-pot clavulanate [Augmentin] 500-125 mg tablet 1 tab PO BID Qty: 19 0RF loperamide 2 mg capsule 2 mg PO Q4H PRN (Reason: loose stool) Qty: 14 0RF Rx Instructions: administer after each loose stool until symptoms controlled; do not exceed 8 mg per 24 hrs ondansetron 4 mg tablet,disintegrating 4 mg PO Q6H PRN (Reason: nausea and vomiting) Qty: 14 0RF
[2023-03-03] MEDS: ondansetron HCL 4 MG/2 ML VIAL IVPUSH (23:12)
[2023-03-03] MEDS: Loperamide HCl 2 MG CAPSULE 4 MG PO (23:12)
[2023-03-03] MEDS: 0.9 % Sodium Chloride 1,000 ML 999 ML IVCONT (23:13)
[2023-03-03 23:24] LABS: Appearance Urine Clear; Color Urine Yellow; Glucose Urine UA Negative (Negative); Leukocyte Esterase Urine Negative (Negative); Nitrite Urine Negative (Negative); Specific Gravity - Urine 1.025 (1.005-1.025); UMIC TRIGGER UACC YES; Urine Blood Small (1+) (Negative); Urine Ketones Trace mg/dL (Negative); Urine Protein 30 (1+) mg/dL (Neg-Trace)
[2023-03-03 23:29] LABS: Bacteria Urine None Seen (None Seen); Hyaline Casts Urine 0-2 /LPF (0-2); Squamous Epithelial Cell Urine 0-2 /HPF (0-2); WBC Urine 0-5 /HPF (0-5)
[2023-03-04] VITALS: BP 141/78; PULSE 84; RESP 19; TEMP 36.7; O2SAT 97
== END 2023-03-04 00:49 | disposition home or self-care (01) ==
PROVIDERS: Emergency Provider Emergency Medicine; PCP Internal Medicine
DX: R11.2 Nausea with vomiting, unspecified (principal); R19.7 Diarrhea, unspecified; Z20.822 Contact with and (suspected) exposure to COVID-19; Z20.828 Contact with and (suspected) exposure to other viral communicable diseases; Z79.899 Other long term (current) drug therapy
CPT/HCPCS: 80053; 81001; 83690; 85025; 87635; 96361; 96374; 99284; J2405

== ENCOUNTER 2023-09-09 15:39 | Emergency (ER) | payer OTHER, SELFPAY ==
--- NOTE | ~2023-09-09 | CT_ITS ---
EXAMINATION: CT ABDOMEN AND PELVIS WITHOUT CONTRAST CLINICAL INFORMATION: Leukocytosis, abdominal pain, vomiting and diverticulitis COMPARISON: CT abdomen pelvis 12/05/2021 TECHNIQUE: Multidetector volumetric imaging was performed from the superior aspect of the liver through the pubic symphysis. Sagittal and coronal reformatted images were obtained on the technologist's workstation. This CT examination was performed using dose optimization techniques as appropriate, variously including the following: *Automated exposure control *Adjustment of mA and/or kV according to patient size (this includes techniques or standardized protocols for targeted exams where dose is matched to indication/reason for exam; i.e. extremities or head) *Use of iterative reconstruction technique DLP: 805 mGy-cm FINDINGS: LUNG BASES: The visualized lung bases are unremarkable. Small hiatal hernia is present. LIVER, GALLBLADDER, AND BILIARY TREE: The liver is enlarged measuring 19.1 cm in cephalocaudad dimension with decreased attenuation consistent with hepatic steatosis. There is focal fatty sparing adjacent to the gallbladder. No focal hepatic lesion or biliary ductal dilatation is present. The gallbladder is unremarkable with no evidence of radiopaque gallstones, gallbladder wall thickening, or obvious pericholecystic inflammatory changes. PANCREAS: Unremarkable. SPLEEN: Unremarkable. ADRENAL GLANDS: Unremarkable. KIDNEYS AND URETERS: The kidneys are normal in size, shape, and attenuation. No hydronephrosis, hydroureter, or calculi seen. No perinephric stranding. BLADDER: Unremarkable. GASTROINTESTINAL TRACT: Again seen is some multiple mildly dilated loops of small bowel bowel without clear-cut transition zone, similar to 12/05/2021. The small and large bowel are otherwise unremarkable. The appendix is unremarkable. ABDOMINAL WALL: No significant hernia is appreciated. LYMPH NODES: Normal. VASCULAR: Unremarkable. PELVIC VISCERA: Unremarkable. OSSEOUS STRUCTURES: Unremarkable. CT/CT abdomen pelvis wo IV con IMPRESSION: 1. A cause for the patient's leukocytosis and abdominal pain has not been found. 2. Incidental note made of an enlarged fatty liver and mildly dilated loops of small bowel without clear-cut transition zone. Fleischner guidelines were followed.
--- NOTE | 2023-09-09 15:48 | ECG_ITS ---
Test Reason : NAUSEA Blood Pressure : / mmHG Vent. Rate : 077 BPM Atrial Rate : 077 BPM P-R Int : 132 ms QRS Dur : 088 ms QT Int : 348 ms P-R-T Axes : 024 031 -03 degrees QTc Int : 393 ms Normal sinus rhythm with sinus arrhythmia Normal ECG When compared with ECG of 14-SEP-2022 20:37, No significant change was found Referred By: Generic ED Physician Electronically Signed By:ROBERT SHAY MD
[2023-09-09 16:36] VITALS: BP 148/108; PULSE 101; RESP 18; TEMP 36.2; O2SAT 97; BMI 37.3
[2023-09-09 17:19] LABS: MANUAL DIFF FLAG NO
[2023-09-09 17:34] LABS: Alanine Aminotransferase 37 U/L (0-40); Albumin Level 4.8 g/dL (3.5-5.0); Alkaline Phosphatase 120 U/L (39-117); Anion Gap 14 (12-20); Aspartate Amino Transferase 20 U/L (5-37); Bilirubin Total 0.5 mg/dL (0.0-1.0); Blood Urea Nitrogen 20 mg/dL (9-16); Calcium 9.9 mg/dL (8.4-10.2); Carbon Dioxide 22 mmol/L (22-29); Chloride 104 mmol/L (96-108); Creatinine Clr Calc Pharmacy 78.9; Estimated Glomerular Filt Rate 53; Glucose Random 127 mg/dL (60-115); Lipase 15 U/L (8-78); Potassium 4.2 mmol/L (3.3-5.1); Sodium 136 mmol/L (135-145); Total Protein 8.6 g/dL (6.5-8.0)
[2023-09-09 17:41] LABS: Troponin-I High Sensitivity < 2.7 ng/L (<3.5-35.0)
[2023-09-09 17:44] LABS: Basophils Absolute Auto 0.1 X10*3/uL (0.0-0.2); Basophils Percent Auto 0.9 % (0-2); Eosinophils Absolute Auto 0.4 X10*3/uL (0.0-0.4); Eosinophils Percent Auto 2.5 % (0-4); Hematocrit 54.3 % (42.0-52.0); Hemoglobin 18.4 g/dl (14.0-18.0); Imm Gran Abs Auto 0.05 X10*3/uL (0.00-0.03); Imm Gran Pct Auto 0.3 % (0.0-0.4); Lymphocytes Absolute Auto 2.6 X10*3/uL (1.2-4.9); Lymphocytes Percent Auto 17.2 % (20-40); Mean Corpuscular HGB Conc 33.9 g/dl (31.0-36.0); Mean Corpuscular Hemoglobin 29.1 pg (27.0-33.0); Mean Corpuscular Volume 85.8 fL (80.0-98.0); Monocytes Percent Auto 6.3 % (2-11); Neutrophils Percent Auto 72.8 % (45-73); Platelet Count 358 X10*3/uL (160-400); Red Blood Count 6.33 X10*6/uL (4.60-5.80); Red Cell Distribution Width 12.8 % (11.0-16.0); White Blood Count 15.1 X10*3/uL (4.8-10.8)
[2023-09-09 18:00] LABS: Influenza A PCR NEGATIVE (Negative); Influenza B PCR NEGATIVE (Negative); Resp Syncy Virus RNA Qual PCR NEGATIVE (Negative); SARS COV2 PCR INHOUSE NEGATIVE (Negative)
[2023-09-09 19:55] LABS: Appearance Urine Clear; Color Urine Yellow; Glucose Urine UA Negative (Negative); Leukocyte Esterase Urine Negative (Negative); Nitrite Urine Negative (Negative); PH 5.5 (5.0-9.0); Specific Gravity - Urine >= 1.030 (1.005-1.025); UMIC TRIGGER UACC YES; Urine Blood Small (1+) (Negative); Urine Ketones Trace mg/dL (Negative); Urine Protein 30 (1+) mg/dL (Neg-Trace)
[2023-09-09 19:59] LABS: Bacteria Urine None Seen (None Seen); Squamous Epithelial Cell Urine 0-2 /HPF (0-2); WBC Urine 0-5 /HPF (0-5)
[2023-09-09 20:38] VITALS: BP 148/94; PULSE 80; RESP 16; TEMP 36.5; O2SAT 97
--- NOTE | 2023-09-09 21:07 | ED_ITS ---
HPI - Nausea/Vomiting/Diarrhea General Chief complaint: Nausea/Vomiting/Diarrhea Stated complaint: stomach pain, vomiting Time Seen by Provider: 09/09/23 20:59 Source: patient and old records reviewed Mode of arrival: ambulatory Limitations: no limitations History of Present Illness HPI Narrative: 48-year-old male came in for evaluation of 1 day history of left lower abdominal pain. In started since this morning associated with nonbloody watery diarrhea several episodes and nausea with 1 episode of vomiting but no fever or chills. Patient declined any blood in the vomit or in stool. Had intra-abdominal infection (not quite sure what kind of infection), reportedly patient had recent endoscopy that he needs to reschedule. No sick contacts, no recent travel, no recent use of antibiotic. Patient had a previous ED visit on 03/03/2023 with similar presentation had unremarkable workup. Related Data Previous Rx's Medication Instructions Recorded ondansetron 4 mg disintegrating 4 mg PO Q6H PRN nausea and 12/05/21 tablet vomiting #14 tabs amoxicillin 500 mg-potassium 1 tab PO BID #19 tabs 09/14/22 clavulanate 125 mg tablet (Augmentin) loperamide 2 mg capsule 2 mg PO Q4H PRN loose stool #14 09/14/22 caps ondansetron 4 mg disintegrating 4 mg PO Q6H PRN nausea and 09/14/22 tablet vomiting #14 tabs hyoscyamine sulfate 0.125 mg tablet 0.125 mg PO QID PRN dyspepsia #7 03/04/23 tabs loperamide 2 mg tablet 2 mg PO Q4H PRN loose stool #14 03/04/23 tabs ondansetron HCl 4 mg tablet 4 mg PO Q6H PRN nausea and 03/04/23 vomiting #10 tabs Allergies Allergy/AdvReac Type Severity Reaction Status Date / Time No Known Allergies Allergy Verified 09/09/23 16:36 Review of Systems 2 Review of Systems: All other systems are reviewed and are negative Constitutional: Reports as per HPI and Reports no additional constitutional complaints Eyes: Reports as per HPI and Reports no additional eye complaints Reports system reviewed and no additional complaints, except as documented Cardiovascular: Reports as per HPI and Reports no additional cardiovascular complaints Respiratory: Reports as per HPI and Reports no additional respiratory complaints Gastrointestinal: Reports as per HPI and Reports no additional gastrointestinal complaints Genitourinary: Reports no additional female genitourinary complaints Musculoskeletal: Reports no additional musculoskeletal complaints Skin/Breast: Reports system reviewed and no additional complaints, except as docu Psychiatric: Reports no additional psychiatric complaints Endocrine: Reports no additional endocrine complaints Hematologic/Lymphatic: Reports no additional hematologic/lymphatic complaints Allergic/Immunologic: Reports no additional allergic/immunologic complaints Reports system reviewed and no additional complaints, except as documented and Reports Abnormal speech present [facility] Social History Social History Alcohol intake: current Alcohol intake frequency: a few times a month Alcohol type: beer and hard liquor Smoked in Last 30 Days: No Substance Use Type: Marijuana Advance Directives: No Advance Directives Information Provided: No Physical Exam 2 Vital Signs: Vital Signs: Last Vital Signs Temp 98.2 F 09/09/23 23:35 Pulse 79 09/09/23 23:35 Resp 18 09/09/23 23:35 BP 121/91 H 09/09/23 23:35 Pulse Ox 97 09/09/23 23:35 O2 Del Method Room Air 09/09/23 23:35 BMI result Body Mass Index 37.3 Vital signs have been reviewed and appear to be correct. Blood pressure elevated. Heart rate normal. Respiratory rate normal. Temperature normal. Oxygen saturation normal. Appearance: Alert. Oriented X3. No acute distress. Head: Normal external exam. Normocephalic. Atraumatic. No Iglesias signs noted. No raccoon eyes noted Eyes: PERRLA. EOMI. Conjunctiva and sclera normal. Eyelids normal. ENT: TM's Normal. Pharynx normal. Uvula midline. Moist mucous membranes. No trismus noted. No drooling noted. No muffled voice noted. Neck: Normal inspection. Neck supple. FROM. No adenopathy. Thyroid Normal. No meningeal signs. No neck mass noted. CVS: Normal heart rate and rhythm. Heart sound normal. No murmurs noted. Pulses normal throughout. Respiratory: No respiratory distress. Painless inspiration. Breath sounds normal. No wheezes/rales/rhonchi noted. Chest nontender. No accessory muscle usage noted or decreased air movement noted. Abdomen: Soft, left lower quadrant tenderness, no rebound tenderness, no guarding Bowel sounds normal in all 4 quadrants. No distention noted. No organomegaly noted. No visible injury noted. Back: No CVA tenderness. Full range of motion noted. Skin: Skin warm and dry. Normal skin color. Normal skin turgor. No rashes/lesions/lacerations noted. Extremities: No lower extremity edema. Extremities exhibit normal range of motion. Extremities nontender. Neuro: Oriented X 3. Cranial nerve exam: II-XII are grossly intact No motor deficit. No sensory deficit. Reflexes normal. 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 Abdominal pain has improved after IV hydration. Time: 23:45 Medications Administered Discontinued Medications Generic Name Dose Route Start Last Admin Trade Name Freq PRN Reason Stop Dose Admin Sodium Chloride 1,000 mls @ 999 mls/hr 09/09/23 21:05 09/09/23 22:13 Ns IV 09/09/23 22:05 Infused .Q1H1M ONE Infusion Loperamide HCl 2 mg 09/09/23 21:05 09/09/23 21:15 Loperamide Hcl 2 Mg Capsule PO 09/09/23 21:06 2 mg ONCE ONE Administration Ondansetron HCl 4 mg 09/09/23 21:05 09/09/23 21:16 Ondansetron Hcl 4 Mg/2 Ml Vial IVPUSH 09/09/23 21:06 4 mg ONCE ONE Administration Medical Decision Making Differential Diagnosis Differential Diagnoses: The differential diagnosis associated with the presentation includes (Diverticulitis, colitis, pancreatitis, acute cholecystitis, appendicitis, electrolyte abnormality, dehydration, acute anemia.) Admission/Observation Consideration of admission/observation: Escalation of care including admission/observation considered Lab Data MDM Lab Attestation statement: I reviewed the patient's lab results. 09/09/23 17:14 09/09/23 17:12 Labs: Lab Results 09/09/23 09/09/23 09/09/23 Range/Units 17:12 17:14 19:42 WBC 15.1 H (4.8-10.8) X10*3/uL RBC 6.33 H (4.60-5.80) X10*6/uL Hgb 18.4 H (14.0-18.0) g/dl Hct 54.3 H (42.0-52.0) % MCV 85.8 (80.0-98.0) fL MCH 29.1 (27.0-33.0) pg MCHC 33.9 (31.0-36.0) g/dl RDW 12.8 (11.0-16.0) % Plt Count 358 (160-400) X10*3/uL MPV 10.0 (9.4-12.4) fL Immature Gran % (Auto) 0.3 (0.0-0.4) % Neut % (Auto) 72.8 (45-73) % Lymph % (Auto) 17.2 L (20-40) % [place] % (Auto) 6.3 (2-11) % Eos % (Auto) 2.5 (0-4) % Baso % (Auto) 0.9 (0-2) % Lymph # (Auto) 2.6 (1.2-4.9) X10*3/uL [place] # (Auto) 1.0 (0.1-1.2) X10*3/uL Eos # (Auto) 0.4 (0.0-0.4) X10*3/uL Baso # (Auto) 0.1 (0.0-0.2) X10*3/uL Abs Immat Gran (auto) 0.05 H (0.00-0.03) X10*3/uL Absolute Neuts (auto) 11.0 H (2.0-8.3) x10*3/uL Absolute Nucleated RBC 0.000 (0.0-0.012) X10*3/uL Nucleated RBC % (auto) 0.0 (0.0-0.2) /100WBC Sodium 136 (135-145) mmol/L Potassium 4.2 (3.3-5.1) mmol/L Chloride 104 (96-108) mmol/L Carbon Dioxide 22 (22-29) mmol/L Anion Gap 14 (12-20) BUN 20 H (9-16) mg/dL Creatinine 1.43 H (0.5-1.4) mg/dL Estim Creat Clear Calc 78.9 Estimated GFR 53 Random Glucose 127 H (60-115) mg/dL Calcium 9.9 (8.4-10.2) mg/dL Total Bilirubin 0.5 (0.0-1.0) mg/dL AST 20 (5-37) U/L ALT 37 (0-40) U/L Alkaline Phosphatase 120 H (39-117) U/L Troponin I High Sens < 2.7 (<3.5-35.0) ng/L Total Protein 8.6 H (6.5-8.0) g/dL Albumin 4.8 (3.5-5.0) g/dL Lipase 15 (8-78) U/L Urine Color Yellow Urine Appearance Clear Urine pH 5.5 (5.0-9.0) Ur Specific [place] >= 1.030 H (1.005-1.025) Urine Protein 30 (1+) H (Neg-Trace) mg/dL Urine Glucose (UA) Negative (Negative) mg/dL Urine Ketones Trace (Negative) mg/dL Urine Blood Small (1+) H (Negative) Urine Nitrite Negative (Negative) Ur Leukocyte Esterase Negative (Negative) Urine RBC 6-10 H (0-2) /HPF Urine WBC 0-5 (0-5) /HPF Ur Squamous Epith Cells 0-2 (0-2) /HPF Urine Bacteria None Seen (None Seen) Hyaline Casts 3-5 (0-2) /LPF Stool Occult Blood (NEGATIVE) C. difficile Tox B Gene (Negative) Influenza Type A (PCR) NEGATIVE (Negative) Influenza Type B (PCR) NEGATIVE (Negative) RSV RNA Qual (PCR) NEGATIVE (Negative) SARS-CoV-2 RNA (RT-PCR) NEGATIVE (Negative) 09/09/23 Range/Units 21:21 WBC (4.8-10.8) X10*3/uL RBC (4.60-5.80) X10*6/uL Hgb (14.0-18.0) g/dl Hct (42.0-52.0) % MCV (80.0-98.0) fL MCH (27.0-33.0) pg MCHC (31.0-36.0) g/dl RDW (11.0-16.0) % Plt Count (160-400) X10*3/uL MPV (9.4-12.4) fL Immature Gran % (Auto) (0.0-0.4) % Neut % (Auto) (45-73) % Lymph % (Auto) (20-40) % [place] % (Auto) (2-11) % Eos % (Auto) (0-4) % Baso % (Auto) (0-2) % Lymph # (Auto) (1.2-4.9) X10*3/uL [place] # (Auto) (0.1-1.2) X10*3/uL Eos # (Auto) (0.0-0.4) X10*3/uL Baso # (Auto) (0.0-0.2) X10*3/uL Abs Immat Gran (auto) (0.00-0.03) X10*3/uL Absolute Neuts (auto) (2.0-8.3) x10*3/uL Absolute Nucleated RBC (0.0-0.012) X10*3/uL Nucleated RBC % (auto) (0.0-0.2) /100WBC Sodium (135-145) mmol/L Potassium (3.3-5.1) mmol/L Chloride (96-108) mmol/L Carbon Dioxide (22-29) mmol/L Anion Gap (12-20) BUN (9-16) mg/dL Creatinine (0.5-1.4) mg/dL Estim Creat Clear Calc Estimated GFR Random Glucose (60-115) mg/dL Calcium (8.4-10.2) mg/dL Total Bilirubin (0.0-1.0) mg/dL AST (5-37) U/L ALT (0-40) U/L Alkaline Phosphatase (39-117) U/L Troponin I High Sens (<3.5-35.0) ng/L Total Protein (6.5-8.0) g/dL Albumin (3.5-5.0) g/dL Lipase (8-78) U/L Urine Color Urine Appearance Urine pH (5.0-9.0) Ur Specific [place] (1.005-1.025) Urine Protein (Neg-Trace) mg/dL Urine Glucose (UA) (Negative) mg/dL Urine Ketones (Negative) mg/dL Urine Blood (Negative) Urine Nitrite (Negative) Ur Leukocyte Esterase (Negative) Urine RBC (0-2) /HPF Urine WBC (0-5) /HPF Ur Squamous Epith Cells (0-2) /HPF Urine Bacteria (None Seen) Hyaline Casts (0-2) /LPF Stool Occult Blood NEGATIVE (NEGATIVE) C. difficile Tox B Gene NEGATIVE (Negative) Influenza Type A (PCR) (Negative) Influenza Type B (PCR) (Negative) RSV RNA Qual (PCR) (Negative) SARS-CoV-2 RNA (RT-PCR) (Negative) Independent Interpretation I performed an independent interpretation of an: CT Scan (Abdomen and pelvis:1. A cause for the patient's leukocytosis and abdominal pain has not been found. 2. Incidental note made of an enlarged fatty liver and mildly dilated loops of small bowel without clear-cut transition zone. ) Radiology Impression Discussion of test interpretation with radiology: I have reviewed the radiologist's reading. Critical Care Time Critical Care Time Critical Care Time: Yes Total Critical Care Time: 45 Attestation: I spent 45 minutes providing critical care service to the patient, this including time spent at the bedside to evaluate the patient, reassess the patient, monitoring vital signs, review labs, and radiographic studies, counseling the patient/family, discussing the case with consultants, disposition the patient. 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 Drink plenty of fluid avoid dehydration. Prescriptions: No Action ondansetron 4 mg tablet,disintegrating 4 mg PO Q6H PRN (Reason: nausea and vomiting) Qty: 14 0RF amoxicillin-pot clavulanate [Augmentin] 500-125 mg tablet 1 tab PO BID Qty: 19 0RF loperamide 2 mg capsule 2 mg PO Q4H PRN (Reason: loose stool) Qty: 14 0RF Rx Instructions: administer after each loose stool until symptoms controlled; do not exceed 8 mg per 24 hrs ondansetron 4 mg tablet,disintegrating 4 mg PO Q6H PRN (Reason: nausea and vomiting) Qty: 14 0RF loperamide 2 mg tablet 2 mg PO Q4H PRN (Reason: loose stool) Qty: 14 0RF Rx Instructions: administer after each loose stool until symptoms controlled; do not exceed 8 mg per 24 hrs ondansetron HCl 4 mg tablet 4 mg PO Q6H PRN (Reason: nausea and vomiting) Qty: 10 0RF hyoscyamine sulfate 0.125 mg tablet 0.125 mg PO QID PRN (Reason: dyspepsia) Qty: 7 0RF Referrals: Omer Weinstein III, MD [Primary Care Provider] - Stand Alone Forms: Work/School Release
[2023-09-09] MEDS: Loperamide HCl 2 MG CAPSULE PO (21:15)
[2023-09-09] MEDS: ondansetron HCL 4 MG/2 ML VIAL IVPUSH (21:16)
[2023-09-09] MEDS: 0.9 % Sodium Chloride 1,000 ML 999 ML IV (21:16)
[2023-09-09 21:40] LABS: OBS Int Ctl Valid YES; OBS1 NEGATIVE (NEGATIVE)
[2023-09-09 22:00] VITALS: BP 115/79; PULSE 74; RESP 16; TEMP 37.1; O2SAT 96
[2023-09-09 22:18] LABS: CDiff Gene PCR NEGATIVE (Negative)
[2023-09-09 23:35] VITALS: BP 121/91; PULSE 79; RESP 18; TEMP 36.8; O2SAT 97
--- NOTE | 2023-09-09 23:36 | MHC.EDTECH ---
This tech took over care of patient at 2300,hourly rounds and vitals completed,patient is resting comfortably at this time.
== END 2023-09-10 00:01 | disposition home or self-care (01) ==
PROVIDERS: Emergency Provider Emergency Medicine; PCP Internal Medicine
DX: K52.9 Noninfective gastroenteritis and colitis, unspecified (principal); R11.2 Nausea with vomiting, unspecified; R10.30 Lower abdominal pain, unspecified; Z20.822 Contact with and (suspected) exposure to COVID-19; Z11.52 Encounter for screening for COVID-19; Z79.899 Other long term (current) drug therapy
CPT/HCPCS: 0241U; 74176; 80053; 81001; 82272; 83690; 84484; 85025; 87493; 93005; 96361; 96374; 99284; 99285; J2405

== ENCOUNTER → 2023-09-09 15:48 | Outpatient (BNV) | payer OTHER, SELFPAY | PROVIDERS: Emergency Provider Emergency Medicine; PCP Internal Medicine; Visit Provider Internal Medicine Cardiovascular Disease | DX: R94.31 Abnormal electrocardiogram [ECG] [EKG] (principal) | CPT/HCPCS: 93010 ==

== ENCOUNTER 2024-06-10 04:35 | Emergency (ER) | payer OTHER, SELFPAY ==
--- NOTE | 2024-06-10 | ECG_ITS ---
Test Reason : CHEST PAIN Blood Pressure : / mmHG Vent. Rate : 071 BPM Atrial Rate : 071 BPM P-R Int : 132 ms QRS Dur : 090 ms QT Int : 362 ms P-R-T Axes : 027 032 012 degrees QTc Int : 393 ms Normal sinus rhythm Normal ECG When compared with ECG of 09-SEP-2023 17:05, No significant change was found Referred By: Generic ED Physician Electronically Signed By:ROBERT SHAY MD
--- NOTE | ~2024-06-10 | XR_ITS ---
EXAMINATION: XR CHEST CLINICAL INFORMATION: chest pain COMPARISON: Chest radiograph 12/05/2021 TECHNIQUE: Frontal view of the chest was obtained. FINDINGS: Normal appearance of the cardiomediastinal structures. No effusions or pneumothoraces. No focal pulmonary consolidation. Normal pattern of pulmonary vasculature. XR/XR chest 1V IMPRESSION: No acute cardiopulmonary abnormalities. Electronically signed by: Rivas Brown MD 06/10/2024 06:04 AM [facility]
[2024-06-10 04:37] VITALS: BP 147/84; PULSE 71; RESP 20; TEMP 36.9; O2SAT 98; BMI 32.5
[2024-06-10 04:54] LABS: MANUAL DIFF FLAG NO
[2024-06-10 04:55] LABS: Basophils Absolute Auto 0.1 X10*3/uL (0.0-0.2); Eosinophils Absolute Auto 0.2 X10*3/uL (0.0-0.4); Eosinophils Percent Auto 1.6 % (0-4); Hematocrit 44.3 % (42.0-52.0); Hemoglobin 15.1 g/dl (14.0-18.0); Imm Gran Abs Auto 0.05 X10*3/uL (0.00-0.03); Imm Gran Pct Auto 0.4 % (0.0-0.4); Lymphocytes Absolute Auto 3.1 X10*3/uL (1.2-4.9); Lymphocytes Percent Auto 26.9 % (20-40); Mean Corpuscular HGB Conc 34.1 g/dl (31.0-36.0); Mean Corpuscular Hemoglobin 29.4 pg (27.0-33.0); Mean Corpuscular Volume 86.4 fL (80.0-98.0); Mean Platelet Volume 9.5 fL (9.4-12.4); Monocytes Absolute Auto 0.8 X10*3/uL (0.1-1.2); Monocytes Percent Auto 7.2 % (2-11); Neutrophils Absolute Auto 7.2 x10*3/uL (2.0-8.3); Neutrophils Percent Auto 62.9 % (45-73); Platelet Count 309 X10*3/uL (160-400); Red Blood Count 5.13 X10*6/uL (4.60-5.80); Red Cell Distribution Width 12.4 % (11.0-16.0); White Blood Count 11.4 X10*3/uL (4.8-10.8)
[2024-06-10 05:01] LABS: Prothrombin Time 11.4 SEC (10.9-12.4)
[2024-06-10 05:10] LABS: Anion Gap 13 (12-20); Blood Urea Nitrogen 12 mg/dL (9-16); Calcium 9.3 mg/dL (8.4-10.2); Carbon Dioxide 21 mmol/L (22-29); Chloride 109 mmol/L (96-108); Creatinine Clr Calc Pharmacy 93.7; Estimated Glomerular Filt Rate > 60; Glucose Random 97 mg/dL (60-115); Potassium 4.1 mmol/L (3.3-5.1); Sodium 139 mmol/L (135-145)
[2024-06-10 05:17] LABS: Troponin-I High Sensitivity < 2.7 ng/L (<3.5-35.0)
--- NOTE | 2024-06-10 05:28 | ED.CHESTPAIN ---
HPI - Chest Pain General Chief Complaint: Chest Pain Stated Complaint: chest pain Time Seen by Provider: 06/10/24 05:28 Source: patient Mode of arrival: ambulatory Limitations: no limitations History of Present Illness ED Provider: mac SCHMIDT narrative: Patient with no known cardiac history complaining of chest pain for last 2- 3 days today while at work noticed similar pain at 01:00 with increased anxiety been does have increased stress at this time unable to sleep no radiation of the pain no shortness of breath patient also complaining of low back pain which is going on for a while Related Data Previous Rx's ?Medication ?Instructions ?Recorded ondansetron 4 mg disintegrating 4 mg PO Q6H PRN nausea and 12/05/21 tablet vomiting #14 tabs amoxicillin 500 mg-potassium 1 tab PO BID #19 tabs 09/14/22 clavulanate 125 mg tablet (Augmentin) loperamide 2 mg capsule 2 mg PO Q4H PRN loose stool #14 09/14/22 caps ondansetron 4 mg disintegrating 4 mg PO Q6H PRN nausea and 09/14/22 tablet vomiting #14 tabs hyoscyamine sulfate 0.125 mg tablet 0.125 mg PO QID PRN dyspepsia #7 03/04/23 tabs loperamide 2 mg tablet 2 mg PO Q4H PRN loose stool #14 03/04/23 tabs ondansetron HCl 4 mg tablet 4 mg PO Q6H PRN nausea and 03/04/23 vomiting #10 tabs lorazepam 1 mg tablet (Ativan) 1 mg PO BEDTIME PRN anxiety/sleep 06/10/24 #14 tabs oxycodone 5 mg tablet 5 mg PO Q8-10H PRN pain #20 tabs 06/10/24 Allergies Allergy/AdvReac Type Severity Reaction Status Date / Time No Known Allergies Allergy Verified 06/10/24 04:41 Review of Systems Review of Systems: Yes all other systems are reviewed and are negative [facility] Social History Social History Alcohol intake: current Alcohol intake frequency: a few times a month Alcohol type: beer and hard liquor Substance Use Type: Marijuana Advance Directives: No Physical Exam Vital Signs: Vital Signs: Last Vital Signs Temp 98.4 F 06/10/24 06:09 Pulse 72 06/10/24 06:09 Resp 18 06/10/24 06:09 BP 133/64 06/10/24 06:09 Pulse Ox 98 06/10/24 06:09 O2 Del Method Room Air 06/10/24 06:09 BMI result Body Mass Index 32.5 Appearance: Alert. Oriented X3. No acute distress. Anxious Eyes: No pallor or icterus ENT: Pharynx normal. Oral Mucosa moist Neck: Normal inspection. Neck supple. CVS: Normal heart rate and rhythm. Pulses normal. Respiratory: No respiratory distress. Equal air entry bilateral, no wheezing/rales/rhonchi Abdomen: Soft and nontender. Bowel sounds are present, no mass palpable, no CVA tenderness Skin: Skin warm and dry. Normal skin color. Normal skin turgor. Extremities: No lower extremity edema. No calf tenderness Neuro: Oriented X 3. No motor deficit. No sensory deficit.No cerebellar signs , cranial nerves II-XII intact Medications Administered Discontinued Medications Generic Name Dose Route Start Last Admin Trade Name Freq PRN Reason Stop Dose Admin Ibuprofen 600 mg 06/10/24 05:27 06/10/24 05:43 Ibuprofen 600 Mg Tablet PO 06/10/24 05:28 600 mg ONCE ONE Administration Lorazepam 1 mg 06/10/24 05:36 06/10/24 05:43 Lorazepam 1 Mg Tablet PO 06/10/24 05:37 1 mg ONCE ONE Administration Oxycodone HCl 10 mg 06/10/24 05:36 06/10/24 05:42 Oxycodone Hcl Immed Release 5 Mg Tablet PO 06/10/24 05:37 10 mg ONCE ONE Administration Medical Decision Making Medical Decision Making [facility] Narrative: Patient's anxiety/stress atypical chest pain with panic attack cardiac enzymes negative EKG without ischemic changes heart score of 0 will discharge patient home on oxycodone and Ativan advised to follow with psychiatrist Differential Diagnosis Differential Diagnoses: The differential diagnosis associated with the presentation includes Admission/Observation Consideration of admission/observation: Escalation of care including admission/observation considered Lab Data [facility] Lab Attestation statement: I reviewed the patient's lab results. 06/10/24 04:48 06/10/24 04:48 Labs: Lab Results 06/10/24 Range/Units 04:48 WBC 11.4 H (4.8-10.8) X10*3/uL RBC 5.13 (4.60-5.80) X10*6/uL Hgb 15.1 (14.0-18.0) g/dl Hct 44.3 (42.0-52.0) % MCV 86.4 (80.0-98.0) fL MCH 29.4 (27.0-33.0) pg MCHC 34.1 (31.0-36.0) g/dl RDW 12.4 (11.0-16.0) % Plt Count 309 (160-400) X10*3/uL MPV 9.5 (9.4-12.4) fL Immature Gran % (Auto) 0.4 (0.0-0.4) % Neut % (Auto) 62.9 (45-73) % Lymph % (Auto) 26.9 (20-40) % [place] % (Auto) 7.2 (2-11) % Eos % (Auto) 1.6 (0-4) % Baso % (Auto) 1.0 (0-2) % Lymph # (Auto) 3.1 (1.2-4.9) X10*3/uL [place] # (Auto) 0.8 (0.1-1.2) X10*3/uL Eos # (Auto) 0.2 (0.0-0.4) X10*3/uL Baso # (Auto) 0.1 (0.0-0.2) X10*3/uL Abs Immat Gran (auto) 0.05 H (0.00-0.03) X10*3/uL Absolute Neuts (auto) 7.2 (2.0-8.3) x10*3/uL Absolute Nucleated RBC 0.000 (0.0-0.012) X10*3/uL Nucleated RBC % (auto) 0.0 (0.0-0.2) /100WBC PT 11.4 (10.9-12.4) SEC INR 1.0 (0.9-1.1) Sodium 139 (135-145) mmol/L Potassium 4.1 (3.3-5.1) mmol/L Chloride 109 H (96-108) mmol/L Carbon Dioxide 21 L (22-29) mmol/L Anion Gap 13 (12-20) BUN 12 (9-16) mg/dL Creatinine 1.11 (0.5-1.4) mg/dL Estim Creat Clear Calc 93.7 Estimated GFR > 60 Random Glucose 97 (60-115) mg/dL Calcium 9.3 D (8.4-10.2) mg/dL Troponin I High Sens < 2.7 (<3.5-35.0) ng/L Independent Interpretation I performed an independent interpretation of an: EKG Interpretation: Normal sinus rhythm heart rate 71 beats per minute normal interval normal axis no acute ST-T no acute ischemia impression normal EKG Discharge Plan Discharge Clinical Impression: Atypical chest pain, Anxiety Patient Disposition: Home, Self-Care Instructions: Noncardiac Chest Pain (ED), Panic Attack (ED) Additional Instructions: Take medication for anxiety and back pain as prescribed Follow up with PCP/psychiatrist Prescriptions: New oxycodone 5 mg tablet 5 mg PO Q8-10H PRN (Reason: pain) Qty: 20 0RF Rx Instructions: Partial Fill upon patient request. lorazepam [Ativan] 1 mg tablet 1 mg PO BEDTIME PRN (Reason: anxiety/sleep) Qty: 14 0RF No Action ondansetron 4 mg tablet,disintegrating 4 mg PO Q6H PRN (Reason: nausea and vomiting) Qty: 14 0RF amoxicillin-pot clavulanate [Augmentin] 500-125 mg tablet 1 tab PO BID Qty: 19 0RF loperamide 2 mg capsule 2 mg PO Q4H PRN (Reason: loose stool) Qty: 14 0RF Rx Instructions: administer after each loose stool until symptoms controlled; do not exceed 8 mg per 24 hrs ondansetron 4 mg tablet,disintegrating 4 mg PO Q6H PRN (Reason: nausea and vomiting) Qty: 14 0RF loperamide 2 mg tablet 2 mg PO Q4H PRN (Reason: loose stool) Qty: 14 0RF Rx Instructions: administer after each loose stool until symptoms controlled; do not exceed 8 mg per 24 hrs ondansetron HCl 4 mg tablet 4 mg PO Q6H PRN (Reason: nausea and vomiting) Qty: 10 0RF hyoscyamine sulfate 0.125 mg tablet 0.125 mg PO QID PRN (Reason: dyspepsia) Qty: 7 0RF Stand Alone Forms: Work/School Release Interventions: ED Discharge Assessment Last Done: 06/10/24 06:09 Discharge Date/Time: 06/10/24 06:11 Print Language: Bulgarian
[2024-06-10] MEDS: oxyCODONE HCl Immed Release 5 MG TABLET 10 MG PO (05:42)
[2024-06-10] MEDS: LORazepam 1 MG TABLET PO (05:43)
[2024-06-10] MEDS: Ibuprofen 600 MG TABLET PO (05:43)
[2024-06-10 06:09] VITALS: BP 133/64; PULSE 72; RESP 18; TEMP 36.9; O2SAT 98
== END 2024-06-10 06:11 | disposition home or self-care (01) ==
PROVIDERS: Emergency Provider Internal Medicine; PCP Internal Medicine
DX: R07.89 Other chest pain (principal); F41.9 Anxiety disorder, unspecified; M54.50 Low back pain, unspecified; Z79.899 Other long term (current) drug therapy
CPT/HCPCS: 36415; 71045; 80048; 84484; 85025; 85610; 93005; 99283; 99284

== ENCOUNTER → 2024-06-10 04:41 | Outpatient (BNV) | payer OTHER, SELFPAY | PROVIDERS: Emergency Provider Internal Medicine; PCP Internal Medicine; Visit Provider Internal Medicine Cardiovascular Disease | DX: R07.9 Chest pain, unspecified (principal) | CPT/HCPCS: 93010 ==

== ENCOUNTER 2024-07-26 16:33 | Emergency (ER) | payer SELFPAY ==
--- NOTE | ~2024-07-26 | CT_ITS ---
CLINICAL HISTORY: cp CT angiography chest with contrast. 3D Postprocessing. Comparison: None Findings: The heart size is normal. RV/LV ratio is normal. Unremarkable thoracic aorta and great vessels. No aneurysm. No acute pulmonary embolus. The visualized thyroid and mediastinum are unremarkable. No consolidation or effusion. No acute fractures. IMPRESSION: 1. No pulmonary embolus. This document has been electronically signed by: Wilfrido Robles MD on 07/26/2024 20:57:12
--- NOTE | ~2024-07-26 | CT_ITS ---
CLINICAL HISTORY: ? disection CT angiography abdomen and pelvis with contrast. 3-D post processing. Comparison: CT/REG/ND/SR - CT ABDOMEN PELVIS WO IV CON - 09/09/23 21:44 EST Findings: Aorta, mesenteric/renal arteries, and iliofemoral systems are within normal limits. No consolidation or effusion. Hepatic steatosis. The gallbladder and additional solid organs are within normal limits. No renal stones. No bowel obstruction, pneumoperitoneum, or pneumatosis. Pelvic contents unremarkable. Normal appendix. No acute fracture. IMPRESSION: No acute findings. No evidence of aortic dissection. This document has been electronically signed by: Wilfrido Robles MD on 07/26/2024 21:04:22
--- NOTE | ~2024-07-26 | XR_ITS ---
CLINICAL HISTORY: chest pain 1 view chest x-ray Comparison: CR/SR - XR CHEST 1V - 06/10/2024 04:52 AM EST Findings: Lungs are well inflated. Heart size and pulmonary vasculature are within normal limits. No focal areas of consolidation. No pleural effusion. IMPRESSION: 1. No acute findings. This document has been electronically signed by: Sanju Dhaliwal MD on 07/26/2024 18:54:26
--- NOTE | 2024-07-26 16:39 | ECG_ITS ---
Test Reason : CHEST PAIN Blood Pressure : / mmHG Vent. Rate : 073 BPM Atrial Rate : 073 BPM P-R Int : 130 ms QRS Dur : 086 ms QT Int : 362 ms P-R-T Axes : 022 009 -17 degrees QTc Int : 398 ms Normal sinus rhythm Normal ECG When compared with ECG of 10-JUN-2024 04:41, No significant change was found Referred By: Generic ED Physician Electronically Signed By:REBECCA ROLAND
[2024-07-26 17:47] VITALS: BP 123/85; PULSE 79; RESP 18; TEMP 36.8; O2SAT 99; BMI 33.7
--- NOTE | 2024-07-26 17:51 | ED.CHESTPAIN ---
HPI - Chest Pain General Chief Complaint: Chest Pain Stated Complaint: Chest Pains Time Seen by Provider: 07/26/24 18:50 Related Data Previous Rx's ?Medication ?Instructions ?Recorded ondansetron 4 mg disintegrating 4 mg PO Q6H PRN nausea and 12/05/21 tablet vomiting #14 tabs amoxicillin 500 mg-potassium 1 tab PO BID #19 tabs 09/14/22 clavulanate 125 mg tablet (Augmentin) loperamide 2 mg capsule 2 mg PO Q4H PRN loose stool #14 09/14/22 caps ondansetron 4 mg disintegrating 4 mg PO Q6H PRN nausea and 09/14/22 tablet vomiting #14 tabs hyoscyamine sulfate 0.125 mg tablet 0.125 mg PO QID PRN dyspepsia #7 03/04/23 tabs loperamide 2 mg tablet 2 mg PO Q4H PRN loose stool #14 03/04/23 tabs ondansetron HCl 4 mg tablet 4 mg PO Q6H PRN nausea and 03/04/23 vomiting #10 tabs lorazepam 1 mg tablet (Ativan) 1 mg PO BEDTIME PRN anxiety/sleep 06/10/24 #14 tabs oxycodone 5 mg tablet 5 mg PO Q8-10H PRN pain #20 tabs 06/10/24 Allergies Allergy/AdvReac Type Severity Reaction Status Date / Time No Known Allergies Allergy Verified 07/26/24 17:49 [facility] Social History Social History Alcohol intake: current Alcohol intake frequency: does not drink Alcohol type: beer and hard liquor Smoked in Last 30 Days: No Use of substances other than those prescribed or required for medical reasons: No Substance Use Type: Marijuana Advance Directives: No Advance Directives Information Provided: No Physical Exam Vital Signs: Vital Signs: Last Vital Signs Temp 98.3 F 07/26/24 17:47 Pulse 79 07/26/24 17:47 Resp 18 07/26/24 17:47 BP 123/85 07/26/24 17:47 Pulse Ox 99 07/26/24 17:47 O2 Del Method Room Air 07/26/24 17:47 BMI result Body Mass Index 33.7 Course Course Course Narrative: RME: 49-year-old male presents to ED for chest pain while lifting paper was at work. Patient also states coughing, nasal congestion and body aches. Patient states younger son is sick. Labs EKG chest x-ray ordered. Medications Administered Discontinued Medications Generic Name Dose Route Start Last Admin Trade Name Freq PRN Reason Stop Dose Admin Iohexol 85 ml 07/26/24 20:03 07/26/24 20:03 Iohexol 350 Mg/Ml 100 Ml Infus..Btl IV 07/26/24 20:04 85 ml ONCE ONE Administration Medical Decision Making Lab Data 07/26/24 18:38 07/26/24 18:38 Labs: Lab Results 07/26/24 07/26/24 07/26/24 Range/Units 18:37 18:38 20:28 WBC 12.4 H (4.8-10.8) X10*3/uL RBC 5.32 (4.60-5.80) X10*6/uL Hgb 15.9 (14.0-18.0) g/dl Hct 46.1 (42.0-52.0) % MCV 86.7 (80.0-98.0) fL MCH 29.9 (27.0-33.0) pg MCHC 34.5 (31.0-36.0) g/dl RDW 12.6 (11.0-16.0) % Plt Count 306 (160-400) X10*3/uL MPV 9.2 L (9.4-12.4) fL Immature Gran % (Auto) 0.3 (0.0-0.4) % Neut % (Auto) 66.7 (45-73) % Lymph % (Auto) 23.2 (20-40) % [place] % (Auto) 7.4 (2-11) % Eos % (Auto) 1.5 (0-4) % Baso % (Auto) 0.9 (0-2) % Lymph # (Auto) 2.9 (1.2-4.9) X10*3/uL [place] # (Auto) 0.9 (0.1-1.2) X10*3/uL Eos # (Auto) 0.2 (0.0-0.4) X10*3/uL Baso # (Auto) 0.1 (0.0-0.2) X10*3/uL Abs Immat Gran (auto) 0.04 H (0.00-0.03) X10*3/uL Absolute Neuts (auto) 8.2 (2.0-8.3) x10*3/uL Absolute Nucleated RBC 0.000 (0.0-0.012) X10*3/uL Nucleated RBC % (auto) 0.0 (0.0-0.2) /100WBC PT 11.3 (10.9-12.4) SEC INR 1.0 (0.9-1.1) APTT 28.8 (26.0-36.8) SEC Sodium 140 (135-145) mmol/L Potassium 4.0 (3.3-5.1) mmol/L Chloride 108 (96-108) mmol/L Carbon Dioxide 22 (22-29) mmol/L Anion Gap 14 (12-20) BUN 13 (9-16) mg/dL Creatinine 0.83 (0.5-1.4) mg/dL Estim Creat Clear Calc 127.5 Estimated GFR > 60 Random Glucose 112 (60-115) mg/dL Calcium 9.3 (8.4-10.2) mg/dL Total Bilirubin 0.4 (0.0-1.0) mg/dL AST 21 (5-37) U/L ALT 26 (0-40) U/L Alkaline Phosphatase 94 (39-117) U/L Troponin I High Sens < 2.7 < 2.7 (<3.5-35.0) ng/L B-Natriuretic Peptide 19 (<100) pg/mL Total Protein 7.6 (6.5-8.0) g/dL Albumin 4.3 (3.5-5.0) g/dL Influenza Type A (PCR) NEGATIVE (Negative) Influenza Type B (PCR) NEGATIVE (Negative) RSV RNA Qual (PCR) NEGATIVE (Negative) SARS-CoV-2 RNA (RT-PCR) NEGATIVE (Negative) S. pyogenes GrpA BRAXTON Positive A (Negative) Discharge Plan Discharge Clinical Impression: Chest pain Patient Disposition: Home, Self-Care Instructions: Chest Pain (ED) Prescriptions: No Action ondansetron 4 mg tablet,disintegrating 4 mg PO Q6H PRN (Reason: nausea and vomiting) Qty: 14 0RF amoxicillin-pot clavulanate [Augmentin] 500-125 mg tablet 1 tab PO BID Qty: 19 0RF loperamide 2 mg capsule 2 mg PO Q4H PRN (Reason: loose stool) Qty: 14 0RF Rx Instructions: administer after each loose stool until symptoms controlled; do not exceed 8 mg per 24 hrs ondansetron 4 mg tablet,disintegrating 4 mg PO Q6H PRN (Reason: nausea and vomiting) Qty: 14 0RF loperamide 2 mg tablet 2 mg PO Q4H PRN (Reason: loose stool) Qty: 14 0RF Rx Instructions: administer after each loose stool until symptoms controlled; do not exceed 8 mg per 24 hrs ondansetron HCl 4 mg tablet 4 mg PO Q6H PRN (Reason: nausea and vomiting) Qty: 10 0RF hyoscyamine sulfate 0.125 mg tablet 0.125 mg PO QID PRN (Reason: dyspepsia) Qty: 7 0RF oxycodone 5 mg tablet 5 mg PO Q8-10H PRN (Reason: pain) Qty: 20 0RF Rx Instructions: Partial Fill upon patient request. lorazepam [Ativan] 1 mg tablet 1 mg PO BEDTIME PRN (Reason: anxiety/sleep) Qty: 14 0RF Referrals: Omer Weinstein III, MD [Primary Care Provider] - 07/28/24 Print Language: Honduran
[2024-07-26 18:43] LABS: MANUAL DIFF FLAG NO
[2024-07-26 18:48] LABS: IDNOW Serial# 58CA691E; Strep A Nucleic Acid Positive (Negative)
[2024-07-26 18:51] LABS: Basophils Absolute Auto 0.1 X10*3/uL (0.0-0.2); Basophils Percent Auto 0.9 % (0-2); Eosinophils Absolute Auto 0.2 X10*3/uL (0.0-0.4); Eosinophils Percent Auto 1.5 % (0-4); Hematocrit 46.1 % (42.0-52.0); Hemoglobin 15.9 g/dl (14.0-18.0); Imm Gran Abs Auto 0.04 X10*3/uL (0.00-0.03); Imm Gran Pct Auto 0.3 % (0.0-0.4); Lymphocytes Absolute Auto 2.9 X10*3/uL (1.2-4.9); Lymphocytes Percent Auto 23.2 % (20-40); Mean Corpuscular HGB Conc 34.5 g/dl (31.0-36.0); Mean Corpuscular Hemoglobin 29.9 pg (27.0-33.0); Mean Corpuscular Volume 86.7 fL (80.0-98.0); Mean Platelet Volume 9.2 fL (9.4-12.4); Monocytes Absolute Auto 0.9 X10*3/uL (0.1-1.2); Monocytes Percent Auto 7.4 % (2-11); Neutrophils Absolute Auto 8.2 x10*3/uL (2.0-8.3); Neutrophils Percent Auto 66.7 % (45-73); Platelet Count 306 X10*3/uL (160-400); Red Blood Count 5.32 X10*6/uL (4.60-5.80); Red Cell Distribution Width 12.6 % (11.0-16.0); White Blood Count 12.4 X10*3/uL (4.8-10.8)
[2024-07-26 18:56] LABS: Prothrombin Time 11.3 SEC (10.9-12.4)
[2024-07-26 18:58] LABS: Alanine Aminotransferase 26 U/L (0-40); Albumin Level 4.3 g/dL (3.5-5.0); Alkaline Phosphatase 94 U/L (39-117); Anion Gap 14 (12-20); Aspartate Amino Transferase 21 U/L (5-37); Bilirubin Total 0.4 mg/dL (0.0-1.0); Blood Urea Nitrogen 13 mg/dL (9-16); Calcium 9.3 mg/dL (8.4-10.2); Carbon Dioxide 22 mmol/L (22-29); Chloride 108 mmol/L (96-108); Creatinine Clr Calc Pharmacy 127.5; Estimated Glomerular Filt Rate > 60; Glucose Random 112 mg/dL (60-115); Sodium 140 mmol/L (135-145); Total Protein 7.6 g/dL (6.5-8.0)
[2024-07-26 18:59] LABS: Partial Thromboplastin Time 28.8 SEC (26.0-36.8)
[2024-07-26 19:03] LABS: B Type Natriuretic Peptide 19 pg/mL (<100)
[2024-07-26 19:10] LABS: Troponin-I High Sensitivity < 2.7 ng/L (<3.5-35.0)
[2024-07-26 19:20] LABS: Influenza A PCR NEGATIVE (Negative); Influenza B PCR NEGATIVE (Negative); Resp Syncy Virus RNA Qual PCR NEGATIVE (Negative); SARS COV2 PCR INHOUSE NEGATIVE (Negative)
--- NOTE | 2024-07-26 19:41 | ED_ITS ---
HPI - Chest Pain General Chief Complaint: Chest Pain Stated Complaint: Chest Pains Time Seen by Provider: 07/26/24 18:50 History of Present Illness HPI narrative: Patient is a 49-year-old male presents today with a long history of smoking. Positive family history of coronary artery disease. Patient was lifting a roll of paper developed sudden sharp pain on the left side radiating to the right back area. There is no fever no chills. There is no diaphoresis. Positive coughing upper respiratory symptoms question mild sore throat. Patient from home. No history of blood clots. No leg swelling. No long distance travel. No history of malignancy. No diaphoresis. No recent stress test. Related Data Previous Rx's ?Medication ?Instructions ?Recorded ondansetron 4 mg disintegrating 4 mg PO Q6H PRN nausea and 12/05/21 tablet vomiting #14 tabs amoxicillin 500 mg-potassium 1 tab PO BID #19 tabs 09/14/22 clavulanate 125 mg tablet (Augmentin) loperamide 2 mg capsule 2 mg PO Q4H PRN loose stool #14 09/14/22 caps ondansetron 4 mg disintegrating 4 mg PO Q6H PRN nausea and 09/14/22 tablet vomiting #14 tabs hyoscyamine sulfate 0.125 mg tablet 0.125 mg PO QID PRN dyspepsia #7 03/04/23 tabs loperamide 2 mg tablet 2 mg PO Q4H PRN loose stool #14 03/04/23 tabs ondansetron HCl 4 mg tablet 4 mg PO Q6H PRN nausea and 03/04/23 vomiting #10 tabs lorazepam 1 mg tablet (Ativan) 1 mg PO BEDTIME PRN anxiety/sleep 06/10/24 #14 tabs oxycodone 5 mg tablet 5 mg PO Q8-10H PRN pain #20 tabs 06/10/24 Allergies Allergy/AdvReac Type Severity Reaction Status Date / Time No Known Allergies Allergy Verified 07/26/24 17:49 Review of Systems 2 Review of Systems: Positive chest pain Yes all other systems are reviewed and are negative [facility] Past Medical History Attestation statement: The following information was validated with the patient. Social History Social History Alcohol intake: current Alcohol intake frequency: does not drink Alcohol type: beer and hard liquor Smoked in Last 30 Days: No Use of substances other than those prescribed or required for medical reasons: No Substance Use Type: Marijuana Advance Directives: No Advance Directives Information Provided: No Physical Exam 2 Vital Signs: Vital Signs: Last Vital Signs Temp 98.3 F 07/26/24 17:47 Pulse 79 07/26/24 17:47 Resp 18 07/26/24 17:47 BP 123/85 07/26/24 17:47 Pulse Ox 99 07/26/24 17:47 O2 Del Method Room Air 07/26/24 17:47 BMI result Body Mass Index 33.7 Appearance: Alert. Oriented X3. No acute distress. Eyes: Pupils equal, round and reactive to light. ENT: Pharynx normal. Neck: Normal inspection. Neck supple. No lymph nodes noted. No crepitus CVS: Normal heart rate and rhythm. Pulses normal. Normal S1 and S2 Respiratory: No respiratory distress. Breath sounds normal. No Wheezing. No rales Abdomen: Soft and nontender. No rigidity. No distention. good BS x4 Skin: Skin warm and dry. Normal skin color. Normal skin turgor. Extremities: No lower extremity edema. Neurovascular intact to all extremities. No Lacerations. No Rash Neuro: Oriented X 3. No motor deficit. No sensory deficit. Moving all extermities. No slurred speech Medications Administered Discontinued Medications Generic Name Dose Route Start Last Admin Trade Name Freq PRN Reason Stop Dose Admin Iohexol 85 ml 07/26/24 20:03 07/26/24 20:03 Iohexol 350 Mg/Ml 100 Ml Infus..Btl IV 07/26/24 20:04 85 ml ONCE ONE Administration Medical Decision Making Medical Decision Making [facility] Narrative: Patient fair appearing presented today with having chest pain that is on the left side question going to the right flank area. Long history of smoking no history sudden deaths in the family not exceptionally tall. Patient's blood pressure in the emergency department was normal. Given the sharp pain. We did get a CTA of the chest abdomen pelvis. I felt the risk of ACS is low this pain is atypical for ACS patient's EKG is normal patient's troponin is negative less than 2.7 there is no evidence of ACS. Will check a 2nd set of enzymes. COVID flu RSV were negative. Interestingly patient did have strep throat. Will go ahead and give antibiotics. My interpretation of patient's EKG showed a sinus rhythm heart rate is 70 NM QRS QTC normal no acute ST segment elevation Patient's CTA of the chest was grossly negative no evidence for PE no evidence for dissection CTA of the abdomen pelvis was negative. No evidence of dissection. Will discharge patient home close follow-up on an outpatient basis 2 sets of enzymes are negative patient has 2 risk factor pain atypical for ACS. Heart score is less than 3. In stable condition. Differential Diagnosis Differential Diagnoses: The differential diagnosis associated with the presentation includes ACS, pneumonia, pneumothorax, dissection, PE Admission/Observation Consideration of admission/observation: Escalation of care including admission/observation considered Lab Data MDM Lab Attestation statement: I reviewed the patient's lab results. 07/26/24 18:38 07/26/24 18:38 Labs: Lab Results 07/26/24 07/26/24 07/26/24 Range/Units 18:37 18:38 20:28 WBC 12.4 H (4.8-10.8) X10*3/uL RBC 5.32 (4.60-5.80) X10*6/uL Hgb 15.9 (14.0-18.0) g/dl Hct 46.1 (42.0-52.0) % MCV 86.7 (80.0-98.0) fL MCH 29.9 (27.0-33.0) pg MCHC 34.5 (31.0-36.0) g/dl RDW 12.6 (11.0-16.0) % Plt Count 306 (160-400) X10*3/uL MPV 9.2 L (9.4-12.4) fL Immature Gran % (Auto) 0.3 (0.0-0.4) % Neut % (Auto) 66.7 (45-73) % Lymph % (Auto) 23.2 (20-40) % [place] % (Auto) 7.4 (2-11) % Eos % (Auto) 1.5 (0-4) % Baso % (Auto) 0.9 (0-2) % Lymph # (Auto) 2.9 (1.2-4.9) X10*3/uL [place] # (Auto) 0.9 (0.1-1.2) X10*3/uL Eos # (Auto) 0.2 (0.0-0.4) X10*3/uL Baso # (Auto) 0.1 (0.0-0.2) X10*3/uL Abs Immat Gran (auto) 0.04 H (0.00-0.03) X10*3/uL Absolute Neuts (auto) 8.2 (2.0-8.3) x10*3/uL Absolute Nucleated RBC 0.000 (0.0-0.012) X10*3/uL Nucleated RBC % (auto) 0.0 (0.0-0.2) /100WBC PT 11.3 (10.9-12.4) SEC INR 1.0 (0.9-1.1) APTT 28.8 (26.0-36.8) SEC Sodium 140 (135-145) mmol/L Potassium 4.0 (3.3-5.1) mmol/L Chloride 108 (96-108) mmol/L Carbon Dioxide 22 (22-29) mmol/L Anion Gap 14 (12-20) BUN 13 (9-16) mg/dL Creatinine 0.83 (0.5-1.4) mg/dL Estim Creat Clear Calc 127.5 Estimated GFR > 60 Random Glucose 112 (60-115) mg/dL Calcium 9.3 (8.4-10.2) mg/dL Total Bilirubin 0.4 (0.0-1.0) mg/dL AST 21 (5-37) U/L ALT 26 (0-40) U/L Alkaline Phosphatase 94 (39-117) U/L Troponin I High Sens < 2.7 < 2.7 (<3.5-35.0) ng/L B-Natriuretic Peptide 19 (<100) pg/mL Total Protein 7.6 (6.5-8.0) g/dL Albumin 4.3 (3.5-5.0) g/dL Influenza Type A (PCR) NEGATIVE (Negative) Influenza Type B (PCR) NEGATIVE (Negative) RSV RNA Qual (PCR) NEGATIVE (Negative) SARS-CoV-2 RNA (RT-PCR) NEGATIVE (Negative) S. pyogenes GrpA [place] Positive A (Negative) Independent Interpretation I performed an independent interpretation of an: EKG (Sinus heart rate is 70 NM QRS QTC normal no acute ST segment elevation) Radiology Impression Discussion of test interpretation with radiology: I have reviewed the radiologist's reading. Chronic Conditions Long history of smoking Social Determinants Patient?s care significantly limited by Social Determinants of Health including: Problems related to primary support group Discharge Plan Discharge Clinical Impression: Chest pain Patient Disposition: Home, Self-Care Instructions: Chest Pain (ED) Prescriptions: No Action ondansetron 4 mg tablet,disintegrating 4 mg PO Q6H PRN (Reason: nausea and vomiting) Qty: 14 0RF amoxicillin-pot clavulanate [Augmentin] 500-125 mg tablet 1 tab PO BID Qty: 19 0RF loperamide 2 mg capsule 2 mg PO Q4H PRN (Reason: loose stool) Qty: 14 0RF Rx Instructions: administer after each loose stool until symptoms controlled; do not exceed 8 mg per 24 hrs ondansetron 4 mg tablet,disintegrating 4 mg PO Q6H PRN (Reason: nausea and vomiting) Qty: 14 0RF loperamide 2 mg tablet 2 mg PO Q4H PRN (Reason: loose stool) Qty: 14 0RF Rx Instructions: administer after each loose stool until symptoms controlled; do not exceed 8 mg per 24 hrs ondansetron HCl 4 mg tablet 4 mg PO Q6H PRN (Reason: nausea and vomiting) Qty: 10 0RF hyoscyamine sulfate 0.125 mg tablet 0.125 mg PO QID PRN (Reason: dyspepsia) Qty: 7 0RF oxycodone 5 mg tablet 5 mg PO Q8-10H PRN (Reason: pain) Qty: 20 0RF Rx Instructions: Partial Fill upon patient request. lorazepam [Ativan] 1 mg tablet 1 mg PO BEDTIME PRN (Reason: anxiety/sleep) Qty: 14 0RF Referrals: Omer Weinstein III, MD [Primary Care Provider] - 07/28/24 Print Language: Hong Konger
[2024-07-26 20:02] VITALS: PULSE 76
[2024-07-26] MEDS: iohexoL 350 MG/ML 100 ML INFUS..BTL 85 ML IV (20:03)
--- NOTE | 2024-07-26 20:05 | PC.NURSE ---
pt reports has had sore throat, now reporting generalized body aches/hip pains as well as 7/10 substernal cp without radiation. nad. nsr on monitor.
[2024-07-26 20:54] LABS: Troponin-I High Sensitivity < 2.7 ng/L (<3.5-35.0)
[2024-07-26] MEDS: Penicillin V Potassium 250 MG TABLET 500 MG PO (21:36)
[2024-07-26] MEDS: Ibuprofen 600 MG TABLET PO (21:36)
[2024-07-26 21:41] VITALS: BP 146/86; PULSE 76; RESP 16; TEMP 37.1; O2SAT 99
== END 2024-07-26 21:42 | disposition home or self-care (01) ==
PROVIDERS: Physician Assistant; Emergency Provider Emergency Medicine Emergency Medical Services; PCP Internal Medicine
DX: R07.89 Other chest pain (principal); M54.50 Low back pain, unspecified; R10.2 Pelvic and perineal pain; J02.9 Acute pharyngitis, unspecified; Z87.891 Personal history of nicotine dependence; Z03.818 Encounter for observation for suspected exposure to other biological agents ruled out; Z79.899 Other long term (current) drug therapy
CPT/HCPCS: 0241U; 36415; 71045; 71275; 74174; 80053; 83880; 84484; 85025; 85610; 85730; 87651; 93005; 99284; 99285; Q9967

== ENCOUNTER → 2024-07-26 16:39 | Outpatient (BNV) | payer SELFPAY | PROVIDERS: Emergency Provider Emergency Medicine Emergency Medical Services; PCP Internal Medicine; Visit Provider Internal Medicine | DX: R07.9 Chest pain, unspecified (principal) | CPT/HCPCS: 93010 ==

== ENCOUNTER → 2024-07-26 17:49 | Outpatient (BNV) | payer OTHER, SELFPAY | PROVIDERS: Emergency Provider Emergency Medicine Emergency Medical Services; PCP Internal Medicine; Visit Provider Radiology Diagnostic Radiology | DX: K76.0 Fatty (change of) liver, not elsewhere classified (principal); R07.9 Chest pain, unspecified | CPT/HCPCS: 71045; 71275; 74174 ==

== ENCOUNTER 2024-09-29 05:04 | Emergency (ER) | payer MEDICAID, SELFPAY ==
--- NOTE | 2024-09-29 | ECG_ITS ---
Test Reason : cp Blood Pressure : */* mmHG Vent. Rate : 63 BPM Atrial Rate : 63 BPM P-R Int : 128 ms QRS Dur : 88 ms QT Int : 378 ms P-R-T Axes : 28 17 19 degrees QTcB Int : 386 ms Normal sinus rhythm Normal ECG When compared with ECG of 26-Jul-2024 16:45, No significant changes seen Referred By: Generic ED Physician Electronically Signed By: REBECCA ROLAND
--- NOTE | ~2024-09-29 | XR_ITS ---
CLINICAL HISTORY: chest pain 2 view chest x-ray. Comparison: CR - XR CHEST 1V - 07/26/24 18:16 EST Findings: The lungs are adequately expanded. No focal consolidation. No effusion or pneumothorax. Cardiac and mediastinal contours are within normal limits. No acute osseous abnormality Impression: No acute process. This document has been electronically signed by: Christopher Gross MD on 09/29/2024 07:41:38
[2024-09-29 05:16] VITALS: BP 162/92; PULSE 71; RESP 17; TEMP 36.6; O2SAT 97; BMI 34.1
[2024-09-29 05:44] LABS: Basophils Absolute Auto 0.1 X10*3/uL (0.0-0.2); Basophils Percent Auto 0.6 % (0-2); Eosinophils Absolute Auto 0.3 X10*3/uL (0.0-0.4); Eosinophils Percent Auto 1.7 % (0-4); Imm Gran Abs Auto 0.06 X10*3/uL (0.00-0.03); Imm Gran Pct Auto 0.4 % (0.0-0.4); Lymphocytes Percent Auto 20.2 % (20-40); MANUAL DIFF FLAG NO; Mean Corpuscular HGB Conc 34.1 g/dl (31.0-36.0); Mean Corpuscular Hemoglobin 30.1 pg (27.0-33.0); Mean Corpuscular Volume 88.4 fL (80.0-98.0); Mean Platelet Volume 9.4 fL (9.4-12.4); Monocytes Percent Auto 6.7 % (2-11); Neutrophils Absolute Auto 10.5 x10*3/uL (2.0-8.3); Neutrophils Percent Auto 70.4 % (45-73); Platelet Count 285 X10*3/uL (160-400); Red Blood Count 4.98 X10*6/uL (4.60-5.80); Red Cell Distribution Width 12.3 % (11.0-16.0); White Blood Count 14.9 X10*3/uL (4.8-10.8)
[2024-09-29 06:00] LABS: Anion Gap 13 (12-20)
[2024-09-29 06:01] LABS: Alanine Aminotransferase 31 U/L (0-40); Alkaline Phosphatase 110 U/L (39-117); Aspartate Amino Transferase 29 U/L (5-37); Bilirubin Total 0.2 mg/dL (0.0-1.0); Blood Urea Nitrogen 16 mg/dL (9-16); Calcium 8.8 mg/dL (8.4-10.2); Carbon Dioxide 23 mmol/L (22-29); Chloride 108 mmol/L (96-108); Creatinine Clr Calc Pharmacy 101.4; Estimated Glomerular Filt Rate > 60; Glucose Random 144 mg/dL (60-115); Magnesium 1.8 mg/dL (1.6-2.6); Potassium 3.9 mmol/L (3.3-5.1); Sodium 140 mmol/L (135-145); Total Protein 7.4 g/dL (6.5-8.0)
[2024-09-29 06:05] LABS: Troponin-I High Sensitivity < 2.7 ng/L (<3.5-35.0)
[2024-09-29 07:10] VITALS: BP 156/88; PULSE 63; RESP 13; TEMP 36.3; O2SAT 100
--- NOTE | 2024-09-29 07:12 | PC.NURSE ---
pt presents to the ED c/o nonradiating right sided chest pain that woke him up from his sleep around 1000 last night. denies aggravating factors. denies dizziness/lightheadedness/sob/nausea/vomiting/previous cardiac hx. labs/ekg/chest xray prior to coming back to the ED. nsr on the case monitor. vss and up to date aside from being slightly hypertensive. pt on RA w/o difficulty. no sob/wob noted. respirations even/unlabored. plan of care ongoing.
--- NOTE | 2024-09-29 07:45 | MHC.EDTECH ---
I called to the patient room, as pt said he has to leave immediately do to family emergence, I told him you have to stay to complete your treatment but he refused RN(Whitney) aware.
--- NOTE | 2024-09-29 07:51 | PC.NURSE ---
this RN called to the room as pt states that he needs to leave immediately d/t a family emergency. pt educated on importance of staying to complete treatment to rule out any possible cause causing the right sided chest pain. pt aware of risks/still refusing to stay. LWCT. provider notified/aware.
[2024-09-29 07:54] VITALS: BP 156/88; PULSE 63; RESP 13; TEMP 36.3; O2SAT 100
--- NOTE | 2024-09-29 07:54 | PC.NURSE ---
this RN called to the room as pt states that he needs to leave immediately d/t a family emergency. pt educated on importance of staying to complete treatment to rule out any possible cause causing the right sided chest pain. pt aware of risks/still refusing to stay. LWBS. provider notified/aware.
== END 2024-09-29 07:58 | disposition left against medical advice (07) ==
PROVIDERS: Emergency Provider Student in an Organized Health Care Education/Training Program; PCP Internal Medicine
DX: R07.89 Other chest pain (principal)
CPT/HCPCS: 36415; 71046; 71275; 74174; 76705; 80053; 82947; 83690; 83735; 83880; 84484; 85025; 93005; 96372; 96374; 96375; 96376; 99281; 99284; 99285; J1171; J1885; Q9967

== ENCOUNTER → 2024-09-29 05:14 | Outpatient (BNV) | payer MEDICAID, SELFPAY | PROVIDERS: Emergency Provider Student in an Organized Health Care Education/Training Program; PCP Internal Medicine; Visit Provider Internal Medicine | DX: R07.9 Chest pain, unspecified (principal) | CPT/HCPCS: 93010 ==

== ENCOUNTER → 2024-09-29 05:50 | Outpatient (BNV) | payer MEDICAID, SELFPAY | PROVIDERS: Emergency Provider Student in an Organized Health Care Education/Training Program; PCP Internal Medicine; Visit Provider Radiology Vascular & Interventional Radiology | DX: R07.9 Chest pain, unspecified (principal) | CPT/HCPCS: 71046; 71275; 74174 ==

== ENCOUNTER 2024-09-29 12:25 | Emergency (ER) | payer MEDICAID, SELFPAY ==
[2024-09-29] VITALS (7 sets, daily range): BP systolic 150–171; BP diastolic 82–88; PULSE 58–72; RESP 16–27; TEMP 36.3–36.4; O2SAT 97–99; BMI 34.0
--- NOTE | ~2024-09-29 | CT_ITS ---
EXAMINATION: CT ANGIOGRAM AORTA CHEST ABDOMEN AND PELVIS CLINICAL INFORMATION: Chest pain radiating to the back. COMPARISON: July 26, 2024. TECHNIQUE: Multiple axial images were obtained through the aorta along the chest abdomen and pelvis after the administration of 100 mL of Omnipaque 350 intravenous contrast. Extensive vascular post-processing including two-dimensional and three-dimensional reformatted images were created and reviewed on an independent workstation. This CT examination was performed using dose optimization techniques as appropriate, variously including the following: *Automated exposure control *Adjustment of mA and/or kV according to patient size (this includes techniques or standardized protocols for targeted exams where dose is matched to indication/reason for exam; i.e. extremities or head) *Use of iterative reconstruction technique. DLP: 751 mGy centimeter. FINDINGS: Chest: Ascending thoracic aorta measures 3.5 cm without focal stenosis or intimal flap or IV contrast extravasation. Aortic arch aorta measures 3 cm without focal stenosis or intimal flap or IV contrast extravasation. Descending thoracic aorta measures 2.9 cm without focal stenosis, intimal flap or IV contrast extravasation. Abdomen and pelvis: Suprarenal abdominal aorta measures 2.6 cm without focal stenosis or IV contrast extravasation nor intimal flap. Infrarenal abdominal aorta measures 2 cm without focal stenosis or intimal flap or IV contrast extravasation. Distal abdominal aorta measures 1.7 cm without intimal flap or IV contrast extravasation. Ancillary findings: There is circumferential mucosal wall thickening throughout the esophagus. No pneumomediastinum. Right-sided pleural effusion, small volume. No pneumothorax. No hemothorax. No lymphadenopathy. No pericardial effusion. Bilateral prominent breast tissue. Small fat-containing umbilical hernia. Liver pancreas spleen adrenal glands kidneys and no gross acute abnormality. No ascites. No hemoperitoneum. No pneumoperitoneum. 3 mm focal enhancing lesion left hepatic lobe. Multilevel thoracolumbar spondylosis without acute fracture or gross listhesis. Sclerosis in the inferior right sacroiliac joint. CT/CT angio abdomen pelvis IMPRESSION: Concerning diffuse esophagitis. Superimposed neoplasm cannot be excluded. No dissection or aneurysm, aorta. Probable small focal flash hemangioma, left hepatic lobe. Fleischner guidelines were followed. Electronically signed by: Adrian Bright MD 09/29/2024 02:28 PM EDT
--- NOTE | 2024-09-29 12:27 | ECG_ITS ---
Test Reason : chest pain Blood Pressure : */* mmHG Vent. Rate : 64 BPM Atrial Rate : 64 BPM P-R Int : 132 ms QRS Dur : 90 ms QT Int : 392 ms P-R-T Axes : 20 22 5 degrees QTcB Int : 404 ms Normal sinus rhythm Normal ECG When compared with ECG of 29-Sep-2024 05:14, No significant change was found Referred By: Generic ED Physician Electronically Signed By: REBECCA ROLAND
--- NOTE | 2024-09-29 12:41 | ED_ITS ---
HPI - General Adult General Chief complaint: Chest Pain Stated complaint: Chest pain, SOB Time Seen by Provider: 09/29/24 13:19 Related Data Previous Rx's ?Medication ?Instructions ?Recorded ondansetron 4 mg disintegrating 4 mg PO Q6H PRN nausea and 12/05/21 tablet vomiting #14 tabs amoxicillin 500 mg-potassium 1 tab PO BID #19 tabs 09/14/22 clavulanate 125 mg tablet (Augmentin) loperamide 2 mg capsule 2 mg PO Q4H PRN loose stool #14 09/14/22 caps ondansetron 4 mg disintegrating 4 mg PO Q6H PRN nausea and 09/14/22 tablet vomiting #14 tabs hyoscyamine sulfate 0.125 mg tablet 0.125 mg PO QID PRN dyspepsia #7 03/04/23 tabs loperamide 2 mg tablet 2 mg PO Q4H PRN loose stool #14 03/04/23 tabs ondansetron HCl 4 mg tablet 4 mg PO Q6H PRN nausea and 03/04/23 vomiting #10 tabs lorazepam 1 mg tablet (Ativan) 1 mg PO BEDTIME PRN anxiety/sleep 06/10/24 #14 tabs oxycodone 5 mg tablet 5 mg PO Q8-10H PRN pain #20 tabs 06/10/24 penicillin V potassium 500 mg 500 mg PO QID strep #40 tabs 07/26/24 tablet tizanidine 2 mg capsule 2 mg PO Q8H PRN muscle spasticity 07/26/24 #10 caps pantoprazole 40 mg tablet,delayed 40 mg PO DAILY #14 tabs 09/29/24 release (Protonix) Allergies Allergy/AdvReac Type Severity Reaction Status Date / Time No Known Allergies Allergy Verified 09/29/24 12:42 [facility] Social History Social History Alcohol intake: current Alcohol intake frequency: holidays/special occasions only Alcohol type: beer and hard liquor Substance Use Type: Marijuana Advance Directives: No Advance Directives Information Provided: Yes Physical Exam ED Vital Signs: Vital Signs - 24 hr 09/29/24 12:40 09/29/24 13:46 09/29/24 13:48 Temperature 97.4 F Pulse Rate 64 72 Respiratory Rate 18 22 H 22 H Blood Pressure 154/85 H 171/85 H Pulse Oximetry 99 98 Oxygen Delivery Method Room Air Room Air 09/29/24 14:15 09/29/24 15:10 Temperature Pulse Rate 64 Respiratory Rate 27 H 20 Blood Pressure 160/88 H Pulse Oximetry 98 Oxygen Delivery Method Room Air BMI result Body Mass Index 34.0 Course Course Course Narrative: RME, this is a rapid medical exam performed by Giuseppe Melvin please refer to primary provider for complete H&P- 49-year-old male presents for evaluation of chest pain. He was seen here this morning but had to leave due to emergency. He reports that his chest pain worsened 40 minutes ago. Plan for repeat labs and EKG. Medications Administered Discontinued Medications Generic Name Dose Route Start Last Admin Trade Name Freq PRN Reason Stop Dose Admin Al Hydroxide/Mg Hydroxide 30 ml 09/29/24 14:55 09/29/24 15:10 Magnesium Hydrox/Alum Hydrox 30 Ml Oral.Susp PO 09/29/24 14:56 30 ml ONCE ONE Administration Hydromorphone HCl 0.5 mg 09/29/24 13:31 09/29/24 13:46 Hydromorphone Hcl 0.5 Mg/0.5 Ml Syringe IVPUSH 09/29/24 13:32 0.5 mg ONCE ONE Administration Protocol Hydromorphone HCl 0.5 mg 09/29/24 14:55 09/29/24 15:10 Hydromorphone Hcl 0.5 Mg/0.5 Ml Syringe IVPUSH 09/29/24 14:56 0.5 mg ONCE ONE Administration Protocol Iohexol 100 ml 09/29/24 13:37 09/29/24 13:39 Iohexol 350 Mg/Ml 100 Ml Infus..Btl IV 09/29/24 13:38 100 ml ONCE ONE Administration Ketorolac Tromethamine 15 mg 09/29/24 14:55 09/29/24 15:11 Ketorolac Tromethamine 15 Mg/Ml Vial IVPUSH 09/29/24 14:56 15 mg ONCE ONE Administration Medical Decision Making Lab Data 09/29/24 12:49 09/29/24 12:49 Labs: Lab Results 09/29/24 09/29/24 Range/Units 12:49 14:52 WBC 13.7 H (4.8-10.8) X10*3/uL RBC 5.15 (4.60-5.80) X10*6/uL Hgb 15.4 (14.0-18.0) g/dl Hct 44.3 (42.0-52.0) % MCV 86.0 (80.0-98.0) fL MCH 29.9 (27.0-33.0) pg MCHC 34.8 (31.0-36.0) g/dl RDW 12.1 (11.0-16.0) % Plt Count 289 (160-400) X10*3/uL MPV 9.4 (9.4-12.4) fL Immature Gran % (Auto) 0.5 H (0.0-0.4) % Neut % (Auto) 76.3 H (45-73) % Lymph % (Auto) 14.0 L (20-40) % [place] % (Auto) 7.0 (2-11) % Eos % (Auto) 1.8 (0-4) % Baso % (Auto) 0.4 (0-2) % Lymph # (Auto) 1.9 (1.2-4.9) X10*3/uL [place] # (Auto) 1.0 (0.1-1.2) X10*3/uL Eos # (Auto) 0.3 (0.0-0.4) X10*3/uL Baso # (Auto) 0.1 (0.0-0.2) X10*3/uL Abs Immat Gran (auto) 0.07 H (0.00-0.03) X10*3/uL Absolute Neuts (auto) 10.4 H (2.0-8.3) x10*3/uL Absolute Nucleated RBC 0.000 (0.0-0.012) X10*3/uL Nucleated RBC % (auto) 0.0 (0.0-0.2) /100WBC Sodium 136 (135-145) mmol/L Potassium 3.8 (3.3-5.1) mmol/L Chloride 109 H (96-108) mmol/L Carbon Dioxide 20 L (22-29) mmol/L Anion Gap 11 L (12-20) BUN 14 (9-16) mg/dL Creatinine 0.88 (0.5-1.4) mg/dL Estim Creat Clear Calc 120.9 Estimated GFR > 60 Random Glucose 169 H (60-115) mg/dL Calcium 9.1 (8.4-10.2) mg/dL Total Bilirubin 0.3 (0.0-1.0) mg/dL AST 25 (5-37) U/L ALT 32 (0-40) U/L Alkaline Phosphatase 106 (39-117) U/L Troponin I High Sens < 2.7 < 2.7 (<3.5-35.0) ng/L B-Natriuretic Peptide 26 (<100) pg/mL Total Protein 7.7 (6.5-8.0) g/dL Albumin 4.1 (3.5-5.0) g/dL Lipase 17 (8-78) U/L Discharge Plan Discharge Clinical Impression: Chest pain Patient Disposition: Home, Self-Care Instructions: Chest Pain (DC), Gastroesophageal Reflux Disease (DC) Prescriptions: New pantoprazole [Protonix] 40 mg tablet,delayed release (DR/EC) 40 mg PO DAILY Qty: 14 0RF No Action ondansetron 4 mg tablet,disintegrating 4 mg PO Q6H PRN (Reason: nausea and vomiting) Qty: 14 0RF amoxicillin-pot clavulanate [Augmentin] 500-125 mg tablet 1 tab PO BID Qty: 19 0RF loperamide 2 mg capsule 2 mg PO Q4H PRN (Reason: loose stool) Qty: 14 0RF Rx Instructions: administer after each loose stool until symptoms controlled; do not exceed 8 mg per 24 hrs ondansetron 4 mg tablet,disintegrating 4 mg PO Q6H PRN (Reason: nausea and vomiting) Qty: 14 0RF tizanidine 2 mg capsule 2 mg PO Q8H PRN (Reason: muscle spasticity) Qty: 10 0RF penicillin V potassium 500 mg tablet 500 mg PO QID Qty: 40 0RF loperamide 2 mg tablet 2 mg PO Q4H PRN (Reason: loose stool) Qty: 14 0RF Rx Instructions: administer after each loose stool until symptoms controlled; do not exceed 8 mg per 24 hrs ondansetron HCl 4 mg tablet 4 mg PO Q6H PRN (Reason: nausea and vomiting) Qty: 10 0RF hyoscyamine sulfate 0.125 mg tablet 0.125 mg PO QID PRN (Reason: dyspepsia) Qty: 7 0RF oxycodone 5 mg tablet 5 mg PO Q8-10H PRN (Reason: pain) Qty: 20 0RF Rx Instructions: Partial Fill upon patient request. lorazepam [Ativan] 1 mg tablet 1 mg PO BEDTIME PRN (Reason: anxiety/sleep) Qty: 14 0RF Referrals: Lb Zelaya MD [Physician] - 10/01/24 Print Language: Sami
[2024-09-29 12:54] LABS: Basophils Absolute Auto 0.1 X10*3/uL (0.0-0.2); Basophils Percent Auto 0.4 % (0-2); Eosinophils Absolute Auto 0.3 X10*3/uL (0.0-0.4); Eosinophils Percent Auto 1.8 % (0-4); Hematocrit 44.3 % (42.0-52.0); Hemoglobin 15.4 g/dl (14.0-18.0); Imm Gran Abs Auto 0.07 X10*3/uL (0.00-0.03); Imm Gran Pct Auto 0.5 % (0.0-0.4); Lymphocytes Absolute Auto 1.9 X10*3/uL (1.2-4.9); MANUAL DIFF FLAG NO; Mean Corpuscular HGB Conc 34.8 g/dl (31.0-36.0); Mean Corpuscular Hemoglobin 29.9 pg (27.0-33.0); Mean Platelet Volume 9.4 fL (9.4-12.4); Neutrophils Absolute Auto 10.4 x10*3/uL (2.0-8.3); Neutrophils Percent Auto 76.3 % (45-73); Platelet Count 289 X10*3/uL (160-400); Red Blood Count 5.15 X10*6/uL (4.60-5.80); Red Cell Distribution Width 12.1 % (11.0-16.0); White Blood Count 13.7 X10*3/uL (4.8-10.8)
--- NOTE | 2024-09-29 12:59 | ECG_ITS ---
Test Reason : chest pain Blood Pressure : */* mmHG Vent. Rate : 65 BPM Atrial Rate : 65 BPM P-R Int : 136 ms QRS Dur : 94 ms QT Int : 382 ms P-R-T Axes : 23 22 16 degrees QTcB Int : 397 ms Normal sinus rhythm Normal ECG When compared with ECG of 29-Sep-2024 12:35, No significant change was found Referred By: Joey Melvin Electronically Signed By: REBECCA ROLAND
[2024-09-29 13:21] LABS: Alanine Aminotransferase 32 U/L (0-40); Albumin Level 4.1 g/dL (3.5-5.0); Alkaline Phosphatase 106 U/L (39-117); Anion Gap 11 (12-20); Aspartate Amino Transferase 25 U/L (5-37); Bilirubin Total 0.3 mg/dL (0.0-1.0); Blood Urea Nitrogen 14 mg/dL (9-16); Calcium 9.1 mg/dL (8.4-10.2); Carbon Dioxide 20 mmol/L (22-29); Chloride 109 mmol/L (96-108); Creatinine Clr Calc Pharmacy 120.9; Estimated Glomerular Filt Rate > 60; Glucose Random 169 mg/dL (60-115); Lipase 17 U/L (8-78); Potassium 3.8 mmol/L (3.3-5.1); Sodium 136 mmol/L (135-145); Total Protein 7.7 g/dL (6.5-8.0)
[2024-09-29 13:24] LABS: B Type Natriuretic Peptide 26 pg/mL (<100)
[2024-09-29 13:36] LABS: Troponin-I High Sensitivity < 2.7 ng/L (<3.5-35.0)
[2024-09-29] MEDS: iohexoL 350 MG/ML 100 ML INFUS..BTL IV (13:39)
--- NOTE | 2024-09-29 13:44 | ED_ITS ---
HPI - Chest Pain General Chief Complaint: Chest Pain Stated Complaint: Chest pain, SOB Time Seen by Provider: 09/29/24 13:19 History of Present Illness HPI narrative: Patient is a 49-year-old male with a long history of smoking. History of hypertension. Presented today with having chest pain on the right side radiating to the mid back. Very abrupt in onset. Never had something similar in the past. There is no fever no chills. No history of leg pain. No sudden deaths in the family. No connective tissue disorder in the family. Positive history of hypertension. No history of diabetes. No history of [place]. positive history of anxiety. No history of high cholesterol. No leg swelling. No travel history. No history of blood clots in the past. Presented with having acute pain. Related Data Previous Rx's ?Medication ?Instructions ?Recorded ondansetron 4 mg disintegrating 4 mg PO Q6H PRN nausea and 12/05/21 tablet vomiting #14 tabs amoxicillin 500 mg-potassium 1 tab PO BID #19 tabs 09/14/22 clavulanate 125 mg tablet (Augmentin) loperamide 2 mg capsule 2 mg PO Q4H PRN loose stool #14 09/14/22 caps ondansetron 4 mg disintegrating 4 mg PO Q6H PRN nausea and 09/14/22 tablet vomiting #14 tabs hyoscyamine sulfate 0.125 mg tablet 0.125 mg PO QID PRN dyspepsia #7 03/04/23 tabs loperamide 2 mg tablet 2 mg PO Q4H PRN loose stool #14 03/04/23 tabs ondansetron HCl 4 mg tablet 4 mg PO Q6H PRN nausea and 03/04/23 vomiting #10 tabs lorazepam 1 mg tablet (Ativan) 1 mg PO BEDTIME PRN anxiety/sleep 06/10/24 #14 tabs oxycodone 5 mg tablet 5 mg PO Q8-10H PRN pain #20 tabs 06/10/24 penicillin V potassium 500 mg 500 mg PO QID strep #40 tabs 07/26/24 tablet tizanidine 2 mg capsule 2 mg PO Q8H PRN muscle spasticity 07/26/24 #10 caps pantoprazole 40 mg tablet,delayed 40 mg PO DAILY #14 tabs 09/29/24 release (Protonix) Allergies Allergy/AdvReac Type Severity Reaction Status Date / Time No Known Allergies Allergy Verified 09/29/24 12:42 Review of Systems 2 Review of Systems: Positive chest pain going to the back Positive diaphoresis Yes all other systems are reviewed and are negative [facility] Past Medical History Attestation statement: The following information was validated with the patient. Social History Social History Alcohol intake: current Alcohol intake frequency: holidays/special occasions only Alcohol type: beer and hard liquor Substance Use Type: Marijuana Advance Directives: No Advance Directives Information Provided: Yes Physical Exam 2 Vital Signs: Vital Signs: Last Vital Signs Temp 97.4 F 09/29/24 12:40 Pulse 64 09/29/24 14:15 Resp 20 09/29/24 15:10 BP 160/88 H 09/29/24 14:15 Pulse Ox 98 09/29/24 14:15 O2 Del Method Room Air 09/29/24 14:15 BMI result Body Mass Index 34.0 Appearance: Alert. Oriented X3. No acute distress. Eyes: Pupils equal, round and reactive to light. ENT: Pharynx normal. Neck: Normal inspection. Neck supple. No lymph nodes noted. No crepitus CVS: Normal heart rate and rhythm. Pulses normal. Normal S1 and S2 Respiratory: No respiratory distress. Breath sounds normal. No Wheezing. No rales Abdomen: Soft and nontender. No rigidity. No distention. good BS x4 Skin: Skin warm and dry. Normal skin color. Normal skin turgor. Extremities: No lower extremity edema. Neurovascular intact to all extremities. No Lacerations. No Rash Neuro: Oriented X 3. No motor deficit. No sensory deficit. Moving all extermities. No slurred speech Medications Administered Discontinued Medications Generic Name Dose Route Start Last Admin Trade Name Freq PRN Reason Stop Dose Admin Al Hydroxide/Mg Hydroxide 30 ml 09/29/24 14:55 09/29/24 15:10 Magnesium Hydrox/Alum Hydrox 30 Ml Oral.Susp PO 09/29/24 14:56 30 ml ONCE ONE Administration Hydromorphone HCl 0.5 mg 09/29/24 13:31 09/29/24 13:46 Hydromorphone Hcl 0.5 Mg/0.5 Ml Syringe IVPUSH 09/29/24 13:32 0.5 mg ONCE ONE Administration Protocol Hydromorphone HCl 0.5 mg 09/29/24 14:55 09/29/24 15:10 Hydromorphone Hcl 0.5 Mg/0.5 Ml Syringe IVPUSH 09/29/24 14:56 0.5 mg ONCE ONE Administration Protocol Iohexol 100 ml 09/29/24 13:37 09/29/24 13:39 Iohexol 350 Mg/Ml 100 Ml Infus..Btl IV 09/29/24 13:38 100 ml ONCE ONE Administration Ketorolac Tromethamine 15 mg 09/29/24 14:55 09/29/24 15:11 Ketorolac Tromethamine 15 Mg/Ml Vial IVPUSH 09/29/24 14:56 15 mg ONCE ONE Administration Medical Decision Making Medical Decision Making [facility] Narrative: I reviewed patient's EKG which showed a sinus rhythm heart rate was 80 [place] QRS QTC normal there is J-point elevation noted. An EKG was repeated about 30 minutes later it looks approximately the same. When compared to previous EKG in July it was about the same. I do not think patient had a STEMI. Patient had chest pain going to the back with diaphoresis extreme at times. But does have a history of anxiety also has a history of hypertension and also has a history of smoking. I reviewed patient's old chart which he was seen in July for a different pain at that time had a CTA was negative. I considered the pros and cons given patient's extreme pain I did elect to do a 2nd CTA of the chest abdomen pelvis to rule out the possibility of dissection. Patient's blood pressure was elevated ED here. He does have history of hypertension and smoking. His pain is atypical for ACS. First set of troponin was negative. Will repeat patient's enzyme. The CTA with also give us information about pneumothorax or hemothorax or widened mediastinum. Patient is going to CT scan at this time My interpretation of patient's CTA was grossly negative. I reviewed radiology's reading which showed a question of esophagitis. Which will require follow-up on an outpatient basis. Patient in no acute distress. Given pain medication given Maalox with moderate relief. Will start patient on a PPI. Have patient follow- up outpatient basis. No evidence for dissection. We did repeat a 2nd set of enzymes they were negative. In the setting of atypical history for ACS. Two sets of negative enzymes EKG unchanged some risk factor patient's heart score is a 3. Will have patient follow-up on an outpatient basis. Differential Diagnosis Differential Diagnoses: The differential diagnosis associated with the presentation includes Dissection, ACS, pneumonia, pneumothorax Admission/Observation Consideration of admission/observation: Escalation of care including admission/observation considered Lab Data MDM Lab Attestation statement: I reviewed the patient's lab results. 09/29/24 12:49 09/29/24 12:49 Labs: Lab Results 09/29/24 09/29/24 Range/Units 12:49 14:52 WBC 13.7 H (4.8-10.8) X10*3/uL RBC 5.15 (4.60-5.80) X10*6/uL Hgb 15.4 (14.0-18.0) g/dl Hct 44.3 (42.0-52.0) % MCV 86.0 (80.0-98.0) fL MCH 29.9 (27.0-33.0) pg MCHC 34.8 (31.0-36.0) g/dl RDW 12.1 (11.0-16.0) % Plt Count 289 (160-400) X10*3/uL MPV 9.4 (9.4-12.4) fL Immature Gran % (Auto) 0.5 H (0.0-0.4) % Neut % (Auto) 76.3 H (45-73) % Lymph % (Auto) 14.0 L (20-40) % [place] % (Auto) 7.0 (2-11) % Eos % (Auto) 1.8 (0-4) % Baso % (Auto) 0.4 (0-2) % Lymph # (Auto) 1.9 (1.2-4.9) X10*3/uL [place] # (Auto) 1.0 (0.1-1.2) X10*3/uL Eos # (Auto) 0.3 (0.0-0.4) X10*3/uL Baso # (Auto) 0.1 (0.0-0.2) X10*3/uL Abs Immat Gran (auto) 0.07 H (0.00-0.03) X10*3/uL Absolute Neuts (auto) 10.4 H (2.0-8.3) x10*3/uL Absolute Nucleated RBC 0.000 (0.0-0.012) X10*3/uL Nucleated RBC % (auto) 0.0 (0.0-0.2) /100WBC Sodium 136 (135-145) mmol/L Potassium 3.8 (3.3-5.1) mmol/L Chloride 109 H (96-108) mmol/L Carbon Dioxide 20 L (22-29) mmol/L Anion Gap 11 L (12-20) BUN 14 (9-16) mg/dL Creatinine 0.88 (0.5-1.4) mg/dL Estim Creat Clear Calc 120.9 Estimated GFR > 60 Random Glucose 169 H (60-115) mg/dL Calcium 9.1 (8.4-10.2) mg/dL Total Bilirubin 0.3 (0.0-1.0) mg/dL AST 25 (5-37) U/L ALT 32 (0-40) U/L Alkaline Phosphatase 106 (39-117) U/L Troponin I High Sens < 2.7 < 2.7 (<3.5-35.0) ng/L B-Natriuretic Peptide 26 (<100) pg/mL Total Protein 7.7 (6.5-8.0) g/dL Albumin 4.1 (3.5-5.0) g/dL Lipase 17 (8-78) U/L Independent Interpretation I performed an independent interpretation of an: EKG (My interpretation patient's 2 EKG as above.) and CT Scan (CTA of the chest abdomen pelvis showed no obvious dissection) Radiology Impression Discussion of test interpretation with radiology: I have reviewed the radiologist's reading. (I reviewed radiology's reading of the CTA) External Record Review External record reviewed: Outpatient record and Prior outpatient radiology (Prior CTA reviewed) Chronic Conditions Patient?s care impacted by: Hypertension Social Determinants Patient?s care significantly limited by Social Determinants of Health including: Problems related to primary support group Discharge Plan Discharge Clinical Impression: Chest pain Patient Disposition: Home, Self-Care Instructions: Chest Pain (DC), Gastroesophageal Reflux Disease (DC) Prescriptions: New pantoprazole [Protonix] 40 mg tablet,delayed release (DR/EC) 40 mg PO DAILY Qty: 14 0RF No Action ondansetron 4 mg tablet,disintegrating 4 mg PO Q6H PRN (Reason: nausea and vomiting) Qty: 14 0RF amoxicillin-pot clavulanate [Augmentin] 500-125 mg tablet 1 tab PO BID Qty: 19 0RF loperamide 2 mg capsule 2 mg PO Q4H PRN (Reason: loose stool) Qty: 14 0RF Rx Instructions: administer after each loose stool until symptoms controlled; do not exceed 8 mg per 24 hrs ondansetron 4 mg tablet,disintegrating 4 mg PO Q6H PRN (Reason: nausea and vomiting) Qty: 14 0RF tizanidine 2 mg capsule 2 mg PO Q8H PRN (Reason: muscle spasticity) Qty: 10 0RF penicillin V potassium 500 mg tablet 500 mg PO QID Qty: 40 0RF loperamide 2 mg tablet 2 mg PO Q4H PRN (Reason: loose stool) Qty: 14 0RF Rx Instructions: administer after each loose stool until symptoms controlled; do not exceed 8 mg per 24 hrs ondansetron HCl 4 mg tablet 4 mg PO Q6H PRN (Reason: nausea and vomiting) Qty: 10 0RF hyoscyamine sulfate 0.125 mg tablet 0.125 mg PO QID PRN (Reason: dyspepsia) Qty: 7 0RF oxycodone 5 mg tablet 5 mg PO Q8-10H PRN (Reason: pain) Qty: 20 0RF Rx Instructions: Partial Fill upon patient request. lorazepam [Ativan] 1 mg tablet 1 mg PO BEDTIME PRN (Reason: anxiety/sleep) Qty: 14 0RF Referrals: Lb Zelaya MD [Physician] - 10/01/24 Print Language: Ukrainian
[2024-09-29] MEDS: HYDROmorphone HCl 0.5 MG/0.5 ML SYRINGE IVPUSH ×2 (13:46→15:10)
[2024-09-29] MEDS: Magnesium Hydrox/Alum Hydrox 30 ML ORAL.SUSP PO (15:10)
[2024-09-29] MEDS: Ketorolac Tromethamine 15 MG/ML VIAL IVPUSH (15:11)
--- OUTSIDE RECORDS SUMMARY | 2024-09-29 15:33 | XMS_ITS | Clinical Summary ---
Author Organization [facility] [address] [place] [address] [place] [phone] Phone Care Team Providers Care Business Change Manager Name Role Phone Omer Weinstein MD Primary Care Provider [phone] Allergies No known active allergies Medications sildenafiL (VIAGRA) 100 mg tablet Take 1/2 to 1 tab (30 minutes to 4 hours) before sexual activity daily; not to exceed one dose per 24/hrs 4 Active ibuprofen (ADVIL,MOTRIN) 800 mg tablet Take 1 Tablet by mouth every 8 hours as needed for Pain. 4 Active omeprazole (PriLOSEC) [address] capsule Take 1 Capsule by mouth every morning (before breakfast). 3 Active diclofenac (VOLTAREN) 1 % topical gel Apply 4 g topically 4 times daily as needed (pain). 1 Active Active Problems Problem Noted Date Diagnosed Date Rectal bleeding 02/24/2020 Obstructive sleep apnea 08/13/2019 Overview (07/08/2024): [facility] Home Sleep Apnea Test: Date 08/08/2019; Wt 254#; BMI 38; JORDAN 61, AI 35; HI 26; Unclassified apneas 2; Obstructive apneas 83; Central apneas 4; Mixed apneas 1; hypopneas 68; average oxygen saturation 88% (lowest 68% with saturations <88% for 5% or more of study) - Obstructive Sleep Apnea - severe; mostly obstructive apneas and hypopneas; with sleep related hypoventilation by 2019 home sleep apnea test. Excessive drinking of alcohol 03/11/2019 Gastroesophageal reflux disease without esophagi tis 05/23/2018 Erectile dysfunction 05/23/2018 Severe obesity with body mas s index (BMI) of 35.0 to 39.9 with comorbidity 05/23/2018 Encounters Date Type Department Care Team Description 08/11/2024 Telephone Adult Medicine [address] [phone] Ashley Rousseau RN 07/08/2024 Nurse Triage Adult Medicine [address] [phone] Omer Weinstein MD Sleep Apnea from Last 3 Months Immunizations Name Administration Dates Next Due Tdap Tetanus diptheria acell ular pertussis (Boostrix; Adacel) 7yo and older 11/08/2016 Surgical History Surgery Date Site/Laterality Comments OTHER SURGICAL HISTORY PROCEDURE: DENIES PREVIOUS SURGERY UPPER GASTROINTESTINAL ENDOSCOPY 04/21/2020 PROCEDURE: GA UPPER GI ENDOSCOPY PERFORMED; COMMENT: biopsy pending COLONOSCOPY 04/21/2020 PROCEDURE: HISTORICAL COLONOSCOPY; COMMENT: polyps Medical History Medical History Date Comments Tobacco use 03/11/2019 DX:Tobacco use Excessive drinking of alcohol 03/11/2019 DX :Excessive drinking of alcohol History of colon polyps 04/21/2020 DX:Histo ry of colon polyps; COMMENT: polyps Family History Medical History Relation Name Comments Pancreatic cancer Father Colon cancer Neg Hx Relation Name Status Comments Father Social History Tobacco Use Types Packs/Day Years Used Date Smoking Tobacco: Every Day Cigarettes 0.2 31.3 Started: 1993 Smokeless Tobacco: Never Alcohol Use Standard Drinks/Week Comments Yes 0 (1 standard drink = 0.6 oz pur e alcohol) Sex and Gender Information Value Date Recorded Sex Assigned at Not on file Legal Sex Male 12:25 PM EST Gender Identity Not on file Sexual Orientation Not on file Obstetrics History Last Filed Vital Signs Vital Sign Reading Time Taken Comments Blood Pressure 110/80 08/19/2023 12:42 PM EST Pulse 71 08/19/2023 12:42 PM EST Temperature - - Respiratory Rate - - Oxygen Saturation - - Inhaled Oxygen Concentration - - Weight 113 kg (249 lb) 08/19/2023 12:42 PM EST Height 175.3 cm (5' 9 ) 08/19/2023 12:42 PM EST Body Mass Index 36.77 08/19/2023 12:42 PM EST Plan of Treatment Health Maintenance Due Date Last Done Comments Hepatitis B Vaccines (1 of 3 - 19+ 3-dose series) 1994 Pneumococcal Vaccine: Pediatrics (0 to 5 Years) and At-Risk Patients (6 to 64 Years) (1 of 2 - PCV) 1994 Cholesterol Screening (Lipid Panel) 06/30/2022 Depression Screening 06/30/2022 HIV Screening 06/30/2022 Hepatitis C Screening 06/30/2022 Social Influencers of Health Screening 06/30/2022 COVID-19 Vaccine (3 - 2023-2 5 season) 2024 12/04/2020, 11/06/2020 Influenza Vaccine (#1) 2024 DTaP,Tdap,and Td Vaccines (2 - Td or Tdap) 11/08/2026 11/08/2016 Colorectal Cancer Screening: Colonoscopy 06/17/2033 06/17/2023 HIB Vaccines Aged Out No longer eligi ble based on patient's age to complete this topic HPV Vaccines Aged Out No longer eligi ble based on patient's age to complete this topic Hepatitis A Vaccines Aged Out No long er eligible based on patient's age to complete this topic IPV Vaccines Aged Out No longer eligi ble based on patient's age to complete this topic MMR Vaccines Aged Out No longer eligi ble based on patient's age to complete this topic Meningococcal ACWY Vaccine Aged Out N o longer eligible based on patient's age to complete this topic Meningococcal B Vacine Aged Out No lo nger eligible based on patient's age to complete this topic RSV Immunization Patients Under 20 months Aged Out No longer eligible b ased on patient's age to complete this topic Varicella Vaccines Aged Out No longer eligible based on patient's age to complete this topic Procedures Procedure Name Priority Date/Time Associated Diagnosis Comments EXTERNAL XRAY REPORT 07/26/2024 HM COLONOSCOPY Routine 06/17/2023 from Last 3 Months or Most Recently Relevant to Health Maintenance Results * External Xray Report (07/26/2024) Anatomical Region Laterality Modality Radiographic Heidi ging us Provider Onbase MD BARRIOS XR PROCEDURES Final Resul t * Hm Colonoscopy (06/17/2023) Colonoscopy no interpretation , abstracted Anatomical Region Laterality Modality Other us Historical Provider HEALTH MAINTENANCE Final Result from Last 3 Months or Most Recently Relevant to Health Maintenance Care Teams Business Change Manager Relationship Specialty Start Date End Date Omer Weinstein MD [address] [place] [id number] PCP - General Internal Medicine 03/09/14
[2024-09-29 15:44] LABS: Troponin-I High Sensitivity < 2.7 ng/L (<3.5-35.0)
== END 2024-09-29 16:17 | disposition home or self-care (01) ==
PROVIDERS: Physician Assistant; Emergency Provider Emergency Medicine Emergency Medical Services; PCP Internal Medicine
DX: R07.89 Other chest pain (principal); R06.02 Shortness of breath; I10 Essential (primary) hypertension; M54.50 Low back pain, unspecified; Z87.891 Personal history of nicotine dependence; Z79.899 Other long term (current) drug therapy
CPT/HCPCS: 36415; 71275; 74174; 80053; 83690; 83880; 84484; 85025; 93005; 96374; 96375; 96376; 99284; J1171; J1885; Q9967

== ENCOUNTER 2024-09-29 20:56 | Emergency (ER) | payer MEDICAID, SELFPAY ==
--- NOTE | 2024-09-29 | ECG_ITS ---
Test Reason : NEAR SYNCOPE Blood Pressure : */* mmHG Vent. Rate : 59 BPM Atrial Rate : 59 BPM P-R Int : 132 ms QRS Dur : 82 ms QT Int : 382 ms P-R-T Axes : 15 35 24 degrees QTcB Int : 378 ms Sinus bradycardia Otherwise normal ECG When compared with ECG of 29-Sep-2024 13:02, No significant change was found Referred By: Generic ED Physician Electronically Signed By: REBECCA ROLAND
--- NOTE | ~2024-09-29 | US_ITS ---
CLINICAL HISTORY: RUQ pain, GB, CBD US abdomen limited Comparison: CT/SR - CT ANGIO ABDOMEN PELVIS - 07/26/24 19:54 EST Findings: The visualized portions of the liver appear normal. No focal hepatic lesion is seen. There is no bile duct dilation. Common duct measures 3 mm in diameter. Gallbladder appears normal. There is no sonographic Alexander sign. IMPRESSION: Gallbladder appears normal. This document has been electronically signed by: Lauri Whipple MD on 09/30/2024 01:29:01
[2024-09-29 20:58] VITALS: BP 110/84; PULSE 70; O2SAT 98
[2024-09-29 21:02] VITALS: BP 137/84; PULSE 60; RESP 18; TEMP 36.5; O2SAT 100; BMI 34.1
[2024-09-29 21:07] VITALS: BP 137/84; PULSE 67; RESP 12; TEMP 36.5; O2SAT 98
[2024-09-29 21:17] LABS: Glucose, Whole Blood 101 mg/dL (60-115)
[2024-09-29 21:25] LABS: MANUAL DIFF FLAG NO
[2024-09-29 21:26] LABS: Basophils Absolute Auto 0.1 X10*3/uL (0.0-0.2); Basophils Percent Auto 0.5 % (0-2); Eosinophils Absolute Auto 0.2 X10*3/uL (0.0-0.4); Eosinophils Percent Auto 1.8 % (0-4); Hematocrit 44.4 % (42.0-52.0); Hemoglobin 15.3 g/dl (14.0-18.0); Imm Gran Abs Auto 0.05 X10*3/uL (0.00-0.03); Imm Gran Pct Auto 0.4 % (0.0-0.4); Lymphocytes Absolute Auto 2.3 X10*3/uL (1.2-4.9); Lymphocytes Percent Auto 18.6 % (20-40); Mean Corpuscular HGB Conc 34.5 g/dl (31.0-36.0); Mean Corpuscular Hemoglobin 29.9 pg (27.0-33.0); Mean Corpuscular Volume 86.7 fL (80.0-98.0); Mean Platelet Volume 9.5 fL (9.4-12.4); Monocytes Absolute Auto 1.1 X10*3/uL (0.1-1.2); Monocytes Percent Auto 8.8 % (2-11); Neutrophils Absolute Auto 8.8 x10*3/uL (2.0-8.3); Neutrophils Percent Auto 69.9 % (45-73); Platelet Count 261 X10*3/uL (160-400); Red Blood Count 5.12 X10*6/uL (4.60-5.80); Red Cell Distribution Width 12.1 % (11.0-16.0); White Blood Count 12.6 X10*3/uL (4.8-10.8)
[2024-09-29 21:41] LABS: Alanine Aminotransferase 26 U/L (0-40); Albumin Level 3.9 g/dL (3.5-5.0); Alkaline Phosphatase 94 U/L (39-117); Anion Gap 11 (12-20); Aspartate Amino Transferase 21 U/L (5-37); Bilirubin Total 0.6 mg/dL (0.0-1.0); Blood Urea Nitrogen 11 mg/dL (9-16); Calcium 8.9 mg/dL (8.4-10.2); Carbon Dioxide 26 mmol/L (22-29); Chloride 106 mmol/L (96-108); Creatinine Clr Calc Pharmacy 122.5; Estimated Glomerular Filt Rate > 60; Glucose Random 106 mg/dL (60-115); Lipase 11 U/L (8-78); Potassium 4.3 mmol/L (3.3-5.1); Sodium 139 mmol/L (135-145); Total Protein 7.3 g/dL (6.5-8.0)
[2024-09-29 21:49] LABS: Troponin-I High Sensitivity < 2.7 ng/L (<3.5-35.0)
[2024-09-29 22:26] VITALS: BP 131/78; PULSE 61; RESP 18; TEMP 36.7; O2SAT 95
[2024-09-30 00:23] VITALS: BP 123/80; PULSE 60; RESP 14; TEMP 36.8; O2SAT 95
[2024-09-30] MEDS: Ketorolac Tromethamine 15 MG/ML VIAL IM (00:25)
--- NOTE | 2024-09-30 03:39 | ED.CHESTPAIN ---
HPI - Chest Pain General Chief Complaint: Chest Pain Stated Complaint: chest pain, sycopal episode Time Seen by Provider: 09/29/24 22:01 Source: patient Limitations: no limitations History of Present Illness ED Provider: Estela Cook PA-C HPI narrative: 49-year-old male presents with chest pain. Patient returns after having had a full workup by Dr. PINA Related Data Previous Rx's ?Medication ?Instructions ?Recorded ondansetron 4 mg disintegrating 4 mg PO Q6H PRN nausea and 12/05/21 tablet vomiting #14 tabs amoxicillin 500 mg-potassium 1 tab PO BID #19 tabs 09/14/22 clavulanate 125 mg tablet (Augmentin) loperamide 2 mg capsule 2 mg PO Q4H PRN loose stool #14 09/14/22 caps ondansetron 4 mg disintegrating 4 mg PO Q6H PRN nausea and 09/14/22 tablet vomiting #14 tabs hyoscyamine sulfate 0.125 mg tablet 0.125 mg PO QID PRN dyspepsia #7 03/04/23 tabs loperamide 2 mg tablet 2 mg PO Q4H PRN loose stool #14 03/04/23 tabs ondansetron HCl 4 mg tablet 4 mg PO Q6H PRN nausea and 03/04/23 vomiting #10 tabs lorazepam 1 mg tablet (Ativan) 1 mg PO BEDTIME PRN anxiety/sleep 06/10/24 #14 tabs oxycodone 5 mg tablet 5 mg PO Q8-10H PRN pain #20 tabs 06/10/24 penicillin V potassium 500 mg 500 mg PO QID strep #40 tabs 07/26/24 tablet tizanidine 2 mg capsule 2 mg PO Q8H PRN muscle spasticity 07/26/24 #10 caps pantoprazole 40 mg tablet,delayed 40 mg PO DAILY #14 tabs 09/29/24 release (Protonix) ketorolac 10 mg tablet 10 mg PO Q6H PRN pain #20 tabs 09/30/24 sucralfate 100 mg/mL oral 10 ml PO QID PRN reflux #300 mL 09/30/24 suspension (Carafate) Allergies Allergy/AdvReac Type Severity Reaction Status Date / Time No Known Allergies Allergy Verified 09/29/24 21:05 Review of Systems Review of Systems: Yes all other systems are reviewed and are negative Constitutional: Constitutional: Denies fatigue and Denies fever(s) Cardiovascular: Cardiovascular: Reports chest pain and Denies dyspnea Respiratory: Respiratory: Denies cough and Denies dyspnea Gastrointestinal: Gastrointestinal: Denies abdominal pain, Denies nausea and Denies vomiting Endocrine: Endocrine: Denies fatigue [facility] Past Medical History Attestation statement: The following information was validated with the patient. Social History Social History Alcohol intake: current Alcohol intake frequency: holidays/special occasions only Alcohol type: beer and hard liquor Substance Use Type: Marijuana Physical Exam Vital Signs: Vital Signs: Last Vital Signs Temp 97.8 F 09/30/24 03:54 Pulse 73 09/30/24 03:54 Resp 12 09/30/24 03:54 BP 121/77 09/30/24 03:54 Pulse Ox 97 09/30/24 03:54 O2 Del Method Room Air 09/30/24 03:54 BMI result Body Mass Index 34.1 Const: Other: Alert Orientation/consciousness: patient oriented x3 Chest: Other: pain elicited with palpation of chest wall no deformity Resp: Effort & Inspection: normal respiratory effort Cardio: Other: normal peripheral perfusion Skin: Other: warm dry no rash Neuro: General: patient oriented x3, gait normal, no focal motor deficits and CN's II-XI intact bilaterally Psych: Other: cooperative Medications Administered Discontinued Medications Generic Name Dose Route Start Last Admin Trade Name Freq PRN Reason Stop Dose Admin Ketorolac Tromethamine 15 mg 09/30/24 00:16 09/30/24 00:25 Ketorolac Tromethamine 15 Mg/Ml Vial IM 09/30/24 00:17 15 mg ONCE ONE Administration Medical Decision Making Medical Decision Making [facility] Narrative: 49-year-old male presents with chest pain. Patient returns after having had a full workup by Dr. PINA patient has had 2- cardiac workups, his pain is consistent with chest wall strain. I will reiterate findings with the patient, if I unknown he had been seen earlier during the day and had a complete workup, I would not have repeated, the patient was not forthcoming about this. Lab Data 09/29/24 21:20 09/29/24 21:20 Labs: Lab Results 09/29/24 09/29/24 Range/Units 21:12 21:20 WBC 12.6 H (4.8-10.8) X10*3/uL RBC 5.12 (4.60-5.80) X10*6/uL Hgb 15.3 (14.0-18.0) g/dl Hct 44.4 (42.0-52.0) % MCV 86.7 (80.0-98.0) fL MCH 29.9 (27.0-33.0) pg MCHC 34.5 (31.0-36.0) g/dl RDW 12.1 (11.0-16.0) % Plt Count 261 (160-400) X10*3/uL MPV 9.5 (9.4-12.4) fL Immature Gran % (Auto) 0.4 (0.0-0.4) % Neut % (Auto) 69.9 (45-73) % Lymph % (Auto) 18.6 L (20-40) % [place] % (Auto) 8.8 (2-11) % Eos % (Auto) 1.8 (0-4) % Baso % (Auto) 0.5 (0-2) % Lymph # (Auto) 2.3 (1.2-4.9) X10*3/uL [place] # (Auto) 1.1 (0.1-1.2) X10*3/uL Eos # (Auto) 0.2 (0.0-0.4) X10*3/uL Baso # (Auto) 0.1 (0.0-0.2) X10*3/uL Abs Immat Gran (auto) 0.05 H (0.00-0.03) X10*3/uL Absolute Neuts (auto) 8.8 H (2.0-8.3) x10*3/uL Absolute Nucleated RBC 0.000 (0.0-0.012) X10*3/uL Nucleated RBC % (auto) 0.0 (0.0-0.2) /100WBC Sodium 139 (135-145) mmol/L Potassium 4.3 (3.3-5.1) mmol/L Chloride 106 (96-108) mmol/L Carbon Dioxide 26 (22-29) mmol/L Anion Gap 11 L (12-20) BUN 11 (9-16) mg/dL Creatinine 0.87 (0.5-1.4) mg/dL Estim Creat Clear Calc 122.5 Estimated GFR > 60 POC Glucose 101 (60-115) mg/dL Random Glucose 106 (60-115) mg/dL Calcium 8.9 (8.4-10.2) mg/dL Total Bilirubin 0.6 (0.0-1.0) mg/dL AST 21 (5-37) U/L ALT 26 (0-40) U/L Alkaline Phosphatase 94 (39-117) U/L Troponin I High Sens < 2.7 (<3.5-35.0) ng/L Total Protein 7.3 (6.5-8.0) g/dL Albumin 3.9 (3.5-5.0) g/dL Lipase 11 (8-78) U/L Discharge Plan Discharge Clinical Impression: Chest wall pain Patient Disposition: Home, Self-Care Instructions: Chest Wall Pain (ED) Additional Instructions: I did not realize that you already had a full workup earlier today by another provider. In addition to the assessment you had earlier today, we repeated labs, including a cardiac enzymes which was normal. I obtained an ultrasound of the abdomen that was normal. We also repeated an EKG , which had no concerning findings. Use the ketorolac as needed for your chest wall pain. Take the Carafate with the ketorolac, this will help coat your stomach; on your prior discharge instructions you were told you have GERD. Please review your discharge instructions that were given to you earlier. Overall you need to follow up with primary care. Prescriptions: New ketorolac 10 mg tablet 10 mg PO Q6H PRN (Reason: pain) Qty: 20 0RF Rx Instructions: maximum total duration of 5 days from all oral, intranasal, or parenteral formulations. The patient received an intramuscular dose of Toradol here in the emergency department. sucralfate [Carafate] 100 mg/mL suspension 10 ml PO QID PRN (Reason: reflux) Qty: 300 0RF Rx Instructions: swish in mouth and swallow; use after food/drink No Action ondansetron 4 mg tablet,disintegrating 4 mg PO Q6H PRN (Reason: nausea and vomiting) Qty: 14 0RF amoxicillin-pot clavulanate [Augmentin] 500-125 mg tablet 1 tab PO BID Qty: 19 0RF loperamide 2 mg capsule 2 mg PO Q4H PRN (Reason: loose stool) Qty: 14 0RF Rx Instructions: administer after each loose stool until symptoms controlled; do not exceed 8 mg per 24 hrs ondansetron 4 mg tablet,disintegrating 4 mg PO Q6H PRN (Reason: nausea and vomiting) Qty: 14 0RF tizanidine 2 mg capsule 2 mg PO Q8H PRN (Reason: muscle spasticity) Qty: 10 0RF penicillin V potassium 500 mg tablet 500 mg PO QID Qty: 40 0RF pantoprazole [Protonix] 40 mg tablet,delayed release (DR/EC) 40 mg PO DAILY Qty: 14 0RF loperamide 2 mg tablet 2 mg PO Q4H PRN (Reason: loose stool) Qty: 14 0RF Rx Instructions: administer after each loose stool until symptoms controlled; do not exceed 8 mg per 24 hrs ondansetron HCl 4 mg tablet 4 mg PO Q6H PRN (Reason: nausea and vomiting) Qty: 10 0RF hyoscyamine sulfate 0.125 mg tablet 0.125 mg PO QID PRN (Reason: dyspepsia) Qty: 7 0RF oxycodone 5 mg tablet 5 mg PO Q8-10H PRN (Reason: pain) Qty: 20 0RF Rx Instructions: Partial Fill upon patient request. lorazepam [Ativan] 1 mg tablet 1 mg PO BEDTIME PRN (Reason: anxiety/sleep) Qty: 14 0RF Interventions: ED Discharge Assessment Last Done: 09/30/24 03:54 Discharge Date/Time: 09/30/24 04:00 Print Language: Japanese
[2024-09-30 03:54] VITALS: BP 121/77; PULSE 73; RESP 12; TEMP 36.6; O2SAT 97
== END 2024-09-30 04:00 | disposition home or self-care (01) ==
PROVIDERS: Emergency Provider Emergency Medicine; PCP Internal Medicine
DX: R07.89 Other chest pain (principal); R10.11 Right upper quadrant pain; R55 Syncope and collapse; Z79.899 Other long term (current) drug therapy
CPT/HCPCS: 36415; 76705; 80053; 82947; 83690; 84484; 85025; 93005; 96372; 99284; 99285; J1885

== ENCOUNTER → 2024-09-30 00:20 | Outpatient (BNV) | payer MEDICAID, SELFPAY | PROVIDERS: Emergency Provider Emergency Medicine; PCP Internal Medicine; Visit Provider Radiology Diagnostic Radiology | DX: R10.11 Right upper quadrant pain (principal) | CPT/HCPCS: 76705 ==